=== PATIENT | female | born 1950 | race African-American/Black ===

== ENCOUNTER → 2016-10-11 | Outpatient (CLI) | payer MEDICARE, MEDICAID ==
[~2016-10-11] MED LIST: AML5T OR; ASPI-231 PO; BACL20TA PO; FOLITAB OR; ROSU5TAB5 PO
== END | disposition home or self-care (01) ==
LOC: Rad HDHVI 08:47
PROVIDERS: ATTEND Internal Medicine Cardiovascular Disease
DX: I67.1 Cerebral aneurysm, nonruptured (principal); I10 Essential (primary) hypertension
CPT/HCPCS: 93880

== ENCOUNTER → 2016-10-31 | Outpatient (CLI) | payer MEDICARE, MEDICAID | END | disposition home or self-care (01) | LOC: LAB 08:44 | DX: I74.9 Embolism and thrombosis of unspecified artery (principal) | CPT/HCPCS: 36415; 82565; 84520 ==

== ENCOUNTER → 2017-02-02 | Outpatient (CLI) | payer MEDICARE, MEDICAID ==
[~2017-02-02] MED LIST changes: +ASPI325T4 PO; +ATOR40TA52 PO; -FOLITAB OR; +PANT40TA2 PO; -ROSU5TAB5 PO
[2017-02-02 09:55] LABS: Basophils # (auto) 0 uL; Basophils % (auto) 0.5 % (0.0-2.0); Eosinophils # (auto) 0.1 uL; Eosinophils % (auto) 2.2 % (0.0-7.0); Hemoglobin 14.3 g/dL (12.2-16.2); Lymphocytes # (auto) 2.1 uL; Lymphocytes % (auto) 43.9 % (10.0-50.0); Mean Corpuscular Hemoglobin 33.5 pg (28.0-32.0); Mean Corpuscular Hgb Conc. 33.9 g/dL (32.0-36.0); Mean Corpuscular Volume 98.7 fL (80.0-100.0); Mean Platelet Volume 10.2 fL (7.4-10.4); Monocytes # (auto) 0.8 uL; Monocytes % (auto) 17.7 % (0.0-12.0); Neutrophils # (auto) 1.7 uL; Neutrophils % (auto) 35.7 % (37.0-80.0); Platelet Count (auto) 152 10^3/uL (140-450); Red Cell Distribution Width 13.8 % (11.6-16.0); SUSPECT VIEW TRANSMISSION; White Blood Cell 4.7 10^3/uL (4.4-10.8)
[2017-02-02 10:15] LABS: INR 1.01 (0.9-1.15); Partial Thromboplastin Time 29.6 sec (22.64-33.71)
[2017-02-02 10:27] LABS: Large Platelets FEW; Platelet Estimate Adequate
== END | disposition home or self-care (01) ==
LOC: LAB 09:47
PROVIDERS: ATTEND Internal Medicine Gastroenterology
DX: Z01.812 Encounter for preprocedural laboratory examination (principal); I74.9 Embolism and thrombosis of unspecified artery
CPT/HCPCS: 36415; 85025; 85610; 85730

== ENCOUNTER → 2017-02-05 | Day surgery (SDC) | payer MEDICARE, MEDICAID ==
[~2017-02-05] VITALS: Ht 162.6 cm; Wt 66.7 kg
[~2017-02-05] MED LIST changes: -ASPI-231 PO; -BACL20TA PO; +LIDOCAINE VISCOUS 2% 15ML UD ONE; +MIDAZOLAM HCL 5 MG/ML-1ML VIAL ONE; +SODIUM CHLORIDE LOCK 10 ML ONE; +diphenhdrAMINE HCL 50 MG/1 ML VL ONE; +fentaNYL CITRATE 100 MCG/2 ML VL ONE
[2017-02-05 10:38] VITALS: BP 134/84
== END | disposition home or self-care (01) ==
LOC: GI 08:58
PROVIDERS: ATTEND Internal Medicine Gastroenterology
DX: R13.10 Dysphagia, unspecified (principal); Z95.0 Presence of cardiac pacemaker; M46.96 Unspecified inflammatory spondylopathy, lumbar region; Z87.891 Personal history of nicotine dependence
CPT/HCPCS: 43239; J2250

== ENCOUNTER → 2017-05-25 | Outpatient (CLI) | payer MEDICARE, MEDICAID ==
[~2017-05-25] MED LIST changes: -LIDOCAINE VISCOUS 2% 15ML UD ONE; -MIDAZOLAM HCL 5 MG/ML-1ML VIAL ONE; -SODIUM CHLORIDE LOCK 10 ML ONE; -diphenhdrAMINE HCL 50 MG/1 ML VL ONE; -fentaNYL CITRATE 100 MCG/2 ML VL ONE
[2017-05-25 09:32] LABS: Hemoglobin 13.9 g/dL (12.2-16.2); Mean Corpuscular Hemoglobin 33.4 pg (28.0-32.0); Mean Corpuscular Hgb Conc. 33.8 g/dL (32.0-36.0); Mean Platelet Volume 9.9 fL (6.9-10.8); Platelet Count (auto) 141 10^3/uL (140-450); Red Cell Distribution Width 13.3 % (11.8-14.3); White Blood Cell 5.3 10^3/uL (4.4-10.8)
[2017-05-25 09:35] LABS: Metamyelocytes % 0; Myelocytes % 0; Promyelocytes % 0; Reactive Lymphocytes 0
[2017-05-25 10:04] LABS: Albumin 3.9 g/dL (3.4-5.0); BUN/Creatinine Ratio 21.1; Bilirubin, Direct 0.2 mg/dL (0-0.2); Bilirubin, Total 0.8 mg/dL (0.2-1.0); Potassium 3.8 mmol/L (3.5-5.1); Total Protein 8.2 g/dL (6.4-8.2)
[2017-05-25 15:53] LABS: Platelet Estimate Adequate
[2017-05-25 15:54] LABS: Large Platelets FEW; Ovalocytes FEW
[2017-05-25 15:55] LABS: Burr Cells FEW
== END | disposition home or self-care (01) ==
LOC: LAB 09:04
PROVIDERS: ATTEND Family Medicine
DX: I10 Essential (primary) hypertension (principal); E78.5 Hyperlipidemia, unspecified
CPT/HCPCS: 36415; 80053; 80061; 80076; 85007; 85027

== ENCOUNTER 2017-07-03 09:48 | Inpatient (IN) | payer MEDICARE, MEDICAID ==
[~2017-07-03] VITALS: Ht 162.6 cm; Wt 66.0 kg
[2017-07-03 10:58] LABS: Basophils # (auto) 0 uL; Basophils % (auto) 1.1 % (0.0-2.0); Eosinophils # (auto) 0.1 uL; Eosinophils % (auto) 1.7 % (0.0-7.0); Hematocrit 43.1 % (36.0-46.0); Hemoglobin 14.4 g/dL (12.2-16.2); Lymphocytes # (auto) 2.3 uL; Lymphocytes % (auto) 51.4 % (10.0-50.0); Mean Corpuscular Hemoglobin 33.4 pg (28.0-32.0); Mean Corpuscular Hgb Conc. 33.4 g/dL (32.0-36.0); Mean Corpuscular Volume 100.2 fL (80.0-100.0); Monocytes # (auto) 0.8 uL; Monocytes % (auto) 17.9 % (0.0-12.0); Neutrophils # (auto) 1.3 uL; Neutrophils % (auto) 27.9 % (37.0-80.0); Nucleated Red Blood Cells % 0.3 %; Platelet Count (auto) 148 10^3/uL (140-450); Red Cell Distribution Width 13.4 % (11.8-14.3); White Blood Cell 4.5 10^3/uL (4.4-10.8)
[2017-07-03 11:32] LABS: Alkaline Phosphatase 125 U/L (45-117); Anion Gap 8 (5-15); Aspartate Aminotransferase 27 U/L (15-37); BUN/Creatinine Ratio 16.4; Blood Urea Nitrogen 10 mg/dL (7-18); Carbon Dioxide 22 mmol/L (21-32); Chloride 112 mmol/L (98-107); GFR African American 127 mL/min; GFR Non-African American 105 mL/min; Glucose 86 mg/dL (74-106); Magnesium 2.3 mg/dL (1.6-2.6); Potassium 3.6 mmol/L (3.5-5.1); Sodium 142 mmol/L (136-145); Total Protein 8.6 g/dL (6.4-8.2)
[2017-07-03] MEDS ORDERED: MORPHINE SULFATE 10 MG/ML INJ 1ML SDV IV PRN ×2 (14:45)
[2017-07-03] MEDS ORDERED: HYDROcodone-ACET 5/325MG TAB PO PRN (14:45)
[2017-07-03] MEDS ORDERED: ONDANSETRON HCL 4 MG/2 ML VIAL IV PRN (14:45)
[2017-07-03] MEDS ORDERED: amLODIPine BESYLATE 5 MG TAB PO ONE (15:00)
[2017-07-03] MEDS ORDERED: PANTOPRAZOLE 40 MG TAB PO ONE (15:00)
[2017-07-03] MEDS ORDERED: ASPirin 81 mg TAB PO SCH (16:27)
[2017-07-03] MEDS: ATORVASTATIN 20 MG TAB PO SCH (22:00)
[2017-07-04 02:30] VITALS: BP 128/63
[2017-07-04 05:00] VITALS: BP 127/63
[2017-07-04 06:03] LABS: INR 1.03 (0.9-1.15); Partial Thromboplastin Time 30.2 sec (22.64-33.71); Prothrombin Time 11.2 sec (9.37-12.3)
[2017-07-04 06:06] LABS: BUN/Creatinine Ratio 16.9; Calcium 9.1 mg/dL (8.5-10.1); Potassium 3.6 mmol/L (3.5-5.1)
[2017-07-04 09:00] VITALS: BP 110/63
[2017-07-04] MEDS: ASPirin 325 MG TAB PO SCH (09:52)
[2017-07-04] MEDS: PANTOPRAZOLE 40 MG TAB PO SCH (09:53)
[2017-07-04] MEDS: amLODIPine BESYLATE 5 MG TAB PO SCH (09:53)
[2017-07-04 12:59] VITALS: BP 118/63
[2017-07-04 16:58] VITALS: BP 149/79
[2017-07-04] MEDS: NITROGLYCERIN 0.4 MG SL TAB SL PRN ×3 (19:44→19:54)
[2017-07-04 21:47] VITALS: BP 119/57
[2017-07-04] MEDS: ATORVASTATIN 20 MG TAB PO SCH (22:20)
[2017-07-05 04:39] VITALS: BP 117/73
[2017-07-05 09:00] VITALS: BP 107/77
[2017-07-05] MEDS: ASPirin 325 MG TAB PO SCH (09:54)
[2017-07-05] MEDS: amLODIPine BESYLATE 5 MG TAB PO SCH (09:55)
[2017-07-05] MEDS: PANTOPRAZOLE 40 MG TAB PO SCH (09:55)
[2017-07-05 12:26] VITALS: BP 107/77
[2017-07-05 13:00] VITALS: BP 112/71
== END 2017-07-05 14:30 | disposition home or self-care (01) | DRG 66 ==
LOC: ER 09:48 → TELE 09:49 → TELE-WESTW 07-04 01:57
PROVIDERS: ADMIT Internal Medicine; ATTEND Internal Medicine
DX: I63.9 Cerebral infarction, unspecified (principal); E87.8 Other disorders of electrolyte and fluid balance, not elsewhere classified; J44.9 Chronic obstructive pulmonary disease, unspecified; M48.02 Spinal stenosis, cervical region; E03.9 Hypothyroidism, unspecified; J32.3 Chronic sphenoidal sinusitis; E78.00 Pure hypercholesterolemia, unspecified; I10 Essential (primary) hypertension; I70.0 Atherosclerosis of aorta; K21.9 Gastro-esophageal reflux disease without esophagitis; M10.9 Gout, unspecified; M47.812 Spondylosis without myelopathy or radiculopathy, cervical region; Z79.82 Long term (current) use of aspirin; Z95.0 Presence of cardiac pacemaker; Z86.79 Personal history of other diseases of the circulatory system; Z82.3 Family history of stroke; Z82.49 Family history of ischemic heart disease and other diseases of the circulatory system; Z83.3 Family history of diabetes mellitus
CPT/HCPCS: 36415; 70450; 71020; 72125; 80048; 80053; 83735; 84443; 84484; 85025; 85610; 85730; 93005; 93306; 93886

== ENCOUNTER → 2017-09-11 | Outpatient (CLI) | payer MEDICARE, MEDICAID ==
[~2017-09-11] MED LIST changes: +IOHEXOL 350 MG/ML 100ML IJ ONE; +LACTCAP35 OR
[2017-09-11 10:55] VITALS: BP 141/72
[2017-09-11 11:26] VITALS: BP 161/62
== END | disposition home or self-care (01) ==
LOC: Rad HDHVI 10:43
PROVIDERS: ATTEND Internal Medicine Cardiovascular Disease
DX: R29.818 Other symptoms and signs involving the nervous system (principal); Z82.49 Family history of ischemic heart disease and other diseases of the circulatory system; Z82.3 Family history of stroke; Z83.3 Family history of diabetes mellitus; Z80.41 Family history of malignant neoplasm of ovary
CPT/HCPCS: 70496; 82565; 96374; G0463; Q9967

== ENCOUNTER → 2017-09-17 | Outpatient (CLI) | payer MEDICARE, MEDICAID ==
[~2017-09-17] MED LIST changes: -IOHEXOL 350 MG/ML 100ML IJ ONE
[2017-09-17 09:45] VITALS: BP 120/54
[2017-09-17 12:26] LABS: Hematocrit 39.9 % (36.0-46.0); Hemoglobin 13.6 g/dL (12.2-16.2); Platelet Count (auto) 158 10^3/uL (140-450); Red Blood Cells 3.99 10^6/uL (4.0-5.20); Red Cell Distribution Width 13.1 % (11.8-14.3); White Blood Cell 3.5 10^3/uL (4.4-10.8)
[2017-09-17 12:35] LABS: Band Neutrophils % (manual) 0; Basophils % (manual) 0 (0.0-2.0)
[2017-09-17 12:36] LABS: Blast Cells 0; Metamyelocytes % 0; Myelocytes % 0; Promyelocytes % 0; Reactive Lymphocytes 0
[2017-09-17 12:40] LABS: BUN/Creatinine Ratio 18.1; Calcium 8.6 mg/dL (8.5-10.1); INR 1.01 (0.9-1.15); Partial Thromboplastin Time 28.9 sec (22.64-33.71); Potassium 3.4 mmol/L (3.5-5.1)
[2017-09-17 12:44] VITALS: BP 126/62
[2017-09-17 13:17] LABS: Eosinophils % (manual) 2 (0-7); Lymphocytes % (manual) 49 (10.0-50.0); Monocytes % (manual) 11 (0-12)
== END | disposition home or self-care (01) ==
LOC: Rad HDHVI 08:04
PROVIDERS: ATTEND Internal Medicine Cardiovascular Disease
DX: Z01.818 Encounter for other preprocedural examination (principal); I70.0 Atherosclerosis of aorta; I11.0 Hypertensive heart disease with heart failure; I50.9 Heart failure, unspecified; D64.9 Anemia, unspecified; R79.1 Abnormal coagulation profile; E78.00 Pure hypercholesterolemia, unspecified; I42.9 Cardiomyopathy, unspecified; Z95.0 Presence of cardiac pacemaker
CPT/HCPCS: 36415; 71046; 80048; 85007; 85027; 85610; 85730; 93005; G0463

== ENCOUNTER 2017-09-18 13:13 | Day surgery (SDC) | payer MEDICARE, MEDICAID ==
[~2017-09-18] VITALS: Ht 162.6 cm; Wt 69.0 kg
[~2017-09-18 13:13] MED LIST changes: -ATOR40TA52 PO; -LACTCAP35 OR
[2017-09-18] MEDS ORDERED: MIDAZOLAM HCL 1MG/1ML-2 ML VIAL IV ONE (13:30)
[2017-09-18] MEDS ORDERED: FLUMAZENIL 0.1 MG/ML INJ 10ML MDV IV ONE (13:30)
[2017-09-18] MEDS ORDERED: fentaNYL CITRATE 100 MCG/2 ML VL IV ONE (13:30)
[2017-09-18] MEDS ORDERED: NALOXONE HCL 0.4 MG/ML VIAL IV ONE (13:30)
[2017-09-18] MEDS ORDERED: METOCLOPRAMIDE HCL 5MG/ml INJ 2ml VIAL IV ONE (13:30)
[2017-09-18] MEDS ORDERED: METOCLOPRAMIDE HCL 5MG/ml INJ 2ml VIAL ONE (13:46)
[2017-11-16] MEDS ORDERED: LACTCAP35 OR (10:57)
== END 2017-09-18 15:40 | disposition home or self-care (01) ==
LOC: CATH 13:13
PROVIDERS: ATTEND Internal Medicine Cardiovascular Disease
DX: I42.9 Cardiomyopathy, unspecified (principal); I50.20 Unspecified systolic (congestive) heart failure; F17.210 Nicotine dependence, cigarettes, uncomplicated; I10 Essential (primary) hypertension; E78.5 Hyperlipidemia, unspecified; J44.9 Chronic obstructive pulmonary disease, unspecified; G45.9 Transient cerebral ischemic attack, unspecified
CPT/HCPCS: 93312; J2250; J3010; J7040; 99152

== ENCOUNTER → 2017-11-16 | Outpatient (CLI) | payer MEDICARE, MEDICAID ==
[~2017-11-16] MED LIST changes: +LACTCAP35 OR
[2017-11-16 09:30] VITALS: BP 117/61
[2017-11-16 09:50] VITALS: BP 122/59
[2017-11-16 12:44] LABS: Hematocrit 41.3 % (36.0-46.0); Hemoglobin 13.9 g/dL (12.2-16.2); Mean Corpuscular Hemoglobin 33.5 pg (28.0-32.0); Mean Corpuscular Hgb Conc. 33.6 g/dL (32.0-36.0); Mean Corpuscular Volume 99.8 fL (80.0-100.0); Platelet Count (auto) 184 10^3/uL (140-450); Red Blood Cells 4.13 10^6/uL (4.0-5.20); Red Cell Distribution Width 13.3 % (11.8-14.3); White Blood Cell 5.3 10^3/uL (4.4-10.8)
[2017-11-16 12:55] LABS: Band Neutrophils % (manual) 0; Basophils % (manual) 0 (0.0-2.0); Metamyelocytes % 0; Partial Thromboplastin Time 30.1 sec (22.64-33.71); Prothrombin Time 10.9 sec (9.37-12.3)
[2017-11-16 12:56] LABS: Blast Cells 0; Myelocytes % 0; Promyelocytes % 0
[2017-11-16 12:58] LABS: BUN/Creatinine Ratio 22.7; Calcium 8.5 mg/dL (8.5-10.1); Potassium 3.9 mmol/L (3.5-5.1)
[2017-11-16 13:17] LABS: Eosinophils % (manual) 1 (0-7); Lymphocytes % (manual) 34 (10.0-50.0); Monocytes % (manual) 13 (0-12); Reactive Lymphocytes 3
== END | disposition home or self-care (01) ==
LOC: Rad HDHVI 09:16
PROVIDERS: ATTEND Internal Medicine Cardiovascular Disease
DX: Z01.818 Encounter for other preprocedural examination (principal); I10 Essential (primary) hypertension; Z79.899 Other long term (current) drug therapy
CPT/HCPCS: 36415; 71046; 80048; 85007; 85027; 85610; 85730; 93005; G0463

== ENCOUNTER 2017-11-22 08:13 | Day surgery (SDC) | payer MEDICARE, MEDICAID ==
[~2017-11-22] VITALS: Ht 162.6 cm; Wt 62.6 kg
[2017-11-22] MEDS ORDERED: ANGIOMAX 250 MG VIAL IV ONE (09:21)
[2017-11-22] MEDS ORDERED: IODIXANOL 320MG/ML 100ML BTL IV ONE (09:21)
[2017-11-22] MEDS ORDERED: SODIUM CHL 0.9% 0 ML ONE (09:21)
[2017-11-22] MEDS ORDERED: MIDAZOLAM HCL 1MG/1ML-2 ML VIAL ONE (09:21)
[2017-11-22] MEDS ORDERED: fentaNYL CITRATE 100 MCG/2 ML VL ONE (09:21)
[2017-11-22] MEDS ORDERED: LIDOCAINE HCL 2 %PF INJ 10ML AMP IJ ONE (09:22)
[2017-11-22] MEDS ORDERED: SODIUM CHLORIDE 0.9% 1,000 ML IV SCH (10:02)
== END 2017-11-22 12:35 | disposition home or self-care (01) ==
LOC: CATH 08:13
PROVIDERS: ATTEND Internal Medicine Cardiovascular Disease
DX: I42.9 Cardiomyopathy, unspecified (principal); I10 Essential (primary) hypertension; E78.5 Hyperlipidemia, unspecified; I49.5 Sick sinus syndrome; Z95.0 Presence of cardiac pacemaker; Z87.891 Personal history of nicotine dependence; I63.9 Cerebral infarction, unspecified; J44.9 Chronic obstructive pulmonary disease, unspecified; E66.9 Obesity, unspecified
CPT/HCPCS: 93460; C1751; C1760; C1894; J1644; J2250; J3010; J7030; Q9967; 99152

== ENCOUNTER 2017-12-31 17:18 | Emergency (ER) | payer MEDICARE, MEDICAID ==
[~2017-12-31] VITALS: Ht 162.6 cm; Wt 64.4 kg
[2017-12-31 18:36] VITALS: BP 145/68
== END 2017-12-31 19:28 | disposition home or self-care (01) ==
LOC: ER 17:19
DX: H61.23 Impacted cerumen, bilateral (principal); M10.9 Gout, unspecified; I10 Essential (primary) hypertension; Z79.82 Long term (current) use of aspirin; Z95.0 Presence of cardiac pacemaker
CPT/HCPCS: 69209

== ENCOUNTER → 2018-02-15 | Outpatient (CLI) | payer MEDICARE, MEDICAID ==
[2018-02-15 09:36] LABS: Basophils # (auto) 0.1 uL; Basophils % (auto) 2.7 % (0.0-2.0); Eosinophils # (auto) 0.1 uL; Eosinophils % (auto) 2.1 % (0.0-7.0); Hematocrit 43.1 % (36.0-46.0); Hemoglobin 14.8 g/dL (12.2-16.2); Lymphocytes # (auto) 1.6 uL; Lymphocytes % (auto) 34.9 % (10.0-50.0); Mean Corpuscular Hemoglobin 33.8 pg (28.0-32.0); Mean Corpuscular Hgb Conc. 34.2 g/dL (32.0-36.0); Mean Corpuscular Volume 98.7 fL (80.0-100.0); Monocytes # (auto) 0.8 uL; Monocytes % (auto) 17.7 % (0.0-12.0); Neutrophils % (auto) 42.6 % (37.0-80.0); Nucleated Red Blood Cells % 0.1 %; Platelet Count (auto) 146 10^3/uL (140-450); Red Blood Cells 4.37 10^6/uL (4.0-5.20); Red Cell Distribution Width 13.7 % (11.8-14.3); Urine Bacteria NONE SEEN /hpf (None Seen); Urine Blood Negative /uL (Negative); Urine Mucus FEW (None Seen); Urine WBC 4 /hpf (0 - 5); White Blood Cell 4.7 10^3/uL (4.4-10.8)
[2018-02-15 10:08] LABS: Albumin 3.8 g/dL (3.4-5.0); Bilirubin, Total 0.6 mg/dL (0.2-1.0); Calcium 8.9 mg/dL (8.5-10.1); Potassium 3.9 mmol/L (3.5-5.1); Total Protein 8.3 g/dL (6.4-8.2)
== END | disposition home or self-care (01) ==
LOC: LAB 08:46
PROVIDERS: ATTEND Nurse Practitioner
DX: I10 Essential (primary) hypertension (principal); E78.5 Hyperlipidemia, unspecified; J44.9 Chronic obstructive pulmonary disease, unspecified; Z79.899 Other long term (current) drug therapy; Z87.891 Personal history of nicotine dependence
CPT/HCPCS: 36415; 80053; 80061; 81001; 82306; 83036; 84443; 85025

== ENCOUNTER → 2018-05-07 | Outpatient (CLI) | payer MEDICARE, MEDICAID ==
[2018-05-07 14:41] LABS: Urine Blood Negative /uL (Negative); Urine Specific Gravity 1.026 (1.001-1.035)
== END | disposition home or self-care (01) ==
LOC: LAB 14:17
PROVIDERS: ATTEND Nurse Practitioner
DX: R35.0 Frequency of micturition (principal); I10 Essential (primary) hypertension; M10.9 Gout, unspecified
CPT/HCPCS: 81003

== ENCOUNTER 2018-07-07 22:11 | Emergency (ER) | payer MEDICARE, MEDICAID ==
[~2018-07-07] VITALS: Ht 162.6 cm; Wt 64.0 kg
[2018-07-07] MEDS ORDERED: cloNIDine HCL 0.1 MG TAB PO ONE (22:30)
[2018-07-08] MEDS ORDERED: SUMAtriptan SUCCINATE 6 MG/0.5 ML VL SC ONE (00:30)
[2018-07-08 00:36] VITALS: BP 109/68
== END 2018-07-08 01:05 | disposition home or self-care (01) ==
LOC: ER 22:13
DX: G43.909 Migraine, unspecified, not intractable, without status migrainosus (principal); I10 Essential (primary) hypertension; Z95.0 Presence of cardiac pacemaker
CPT/HCPCS: 70450; 99284; J3030

== ENCOUNTER → 2018-10-02 | Outpatient (CLI) | payer OTHER, MEDICAID, MEDICARE ==
[2018-10-02 09:20] LABS: Basophils # (auto) 0.1 uL; Basophils % (auto) 1.7 % (0.0-2.0); Eosinophils # (auto) 0.3 uL; Eosinophils % (auto) 7.5 % (0.0-7.0); Hematocrit 41.5 % (36.0-46.0); Hemoglobin 14.3 g/dL (12.2-16.2); Lymphocytes # (auto) 1.6 uL; Mean Corpuscular Hgb Conc. 34.6 g/dL (32.0-36.0); Mean Corpuscular Volume 98.3 fL (80.0-100.0); Monocytes # (auto) 0.5 uL; Monocytes % (auto) 14.2 % (0.0-12.0); Neutrophils # (auto) 1.4 uL; Neutrophils % (auto) 35.6 % (37.0-80.0); Nucleated Red Blood Cells % 0.2 %; Platelet Count (auto) 138 10^3/uL (140-450); Red Blood Cells 4.22 10^6/uL (4.0-5.20); Red Cell Distribution Width 12.9 % (11.8-14.3); White Blood Cell 3.8 10^3/uL (4.4-10.8)
[2018-10-02 09:41] LABS: Albumin 3.6 g/dL (3.4-5.0); Calcium 8.6 mg/dL (8.5-10.1); Potassium 3.8 mmol/L (3.5-5.1)
[2018-10-02 09:47] LABS: Bilirubin, Total 0.5 mg/dL (0.2-1.0); Total Protein 7.7 g/dL (6.4-8.2)
[2018-10-02 10:13] LABS: Urine Bacteria FEW /hpf (None Seen); Urine Blood Negative /uL (Negative); Urine Budding Yeast FEW /hpf (None Seen); Urine Specific Gravity 1.016 (1.001-1.035); Urine WBC 2 /hpf (0 - 5)
== END | disposition home or self-care (01) ==
LOC: LAB 08:22
PROVIDERS: ATTEND Nurse Practitioner
DX: E78.5 Hyperlipidemia, unspecified (principal)
CPT/HCPCS: 36415; 80053; 80061; 81001; 84443; 85025

== ENCOUNTER → 2019-02-04 | Outpatient (CLI) | payer MEDICARE, MEDICAID ==
[2019-02-04 09:21] LABS: Urine WBC None Seen /hpf (0 - 5)
[2019-02-04 09:38] LABS: Hemoglobin 13.8 g/dL (12.2-16.2); Mean Corpuscular Volume 101.3 fL (80.0-100.0); Platelet Count (auto) 151 10^3/uL (140-450); Red Cell Distribution Width 13.7 % (11.8-14.3)
[2019-02-04 09:40] LABS: Hematocrit 40.2 % (36.0-46.0); Mean Corpuscular Hemoglobin 34.7 pg (28.0-32.0); Mean Corpuscular Hgb Conc. 34.3 g/dL (32.0-36.0); Red Blood Cells 3.97 10^6/uL (4.0-5.20); White Blood Cell 4.3 10^3/uL (4.4-10.8)
[2019-02-04 09:46] LABS: Potassium 4.1 mmol/L (3.5-5.1)
[2019-02-04 09:55] LABS: Band Neutrophils % (manual) 0; Basophils % (manual) 0 (0.0-2.0); Blast Cells 0; Metamyelocytes % 0; Myelocytes % 0; Promyelocytes % 0; Reactive Lymphocytes 0
[2019-02-04 09:59] LABS: Albumin 3.7 g/dL (3.4-5.0); Bilirubin, Total 0.5 mg/dL (0.2-1.0); Calcium 8.8 mg/dL (8.5-10.1); Total Protein 8.3 g/dL (6.4-8.2)
[2019-02-04 10:00] LABS: Urine Bacteria NONE SEEN /hpf (None Seen); Urine Blood Negative /uL (Negative); Urine Budding Yeast MODERATE /hpf (None Seen); Urine Specific Gravity 1.013 (1.001-1.035)
[2019-02-04 11:54] LABS: Eosinophils % (manual) 4 (0-7); Lymphocytes % (manual) 39 (10.0-50.0); Monocytes % (manual) 23 (0-12)
== END | disposition home or self-care (01) ==
LOC: LAB 08:01
PROVIDERS: ATTEND Nurse Practitioner
DX: E78.5 Hyperlipidemia, unspecified (principal)
CPT/HCPCS: 36415; 80053; 80061; 81001; 84443; 85007; 85027

== ENCOUNTER → 2019-02-11 | Outpatient (CLI) | payer MEDICARE, OTHER | END | disposition home or self-care (01) | LOC: Rad HDHVI 09:51 | PROVIDERS: ATTEND Internal Medicine Cardiovascular Disease | DX: I34.0 Nonrheumatic mitral (valve) insufficiency (principal); J44.9 Chronic obstructive pulmonary disease, unspecified; I10 Essential (primary) hypertension; E78.5 Hyperlipidemia, unspecified | CPT/HCPCS: 93306 ==

== ENCOUNTER → 2019-03-21 | Outpatient (CLI) | payer MEDICARE, OTHER ==
[2019-03-21 16:17] LABS: Eosinophils # (auto) 0.1 uL; Hemoglobin 14.2 g/dL (12.2-16.2); Monocytes # (auto) 0.8 uL; Neutrophils # (auto) 1.6 uL; Platelet Count (auto) 161 10^3/uL (140-450); Red Blood Cells 4.11 10^6/uL (4.0-5.20); White Blood Cell 4.4 10^3/uL (4.4-10.8)
[2019-03-21 16:18] LABS: Calcium 8.8 mg/dL (8.5-10.1); Potassium 3.6 mmol/L (3.5-5.1)
[2019-03-21 16:20] LABS: BUN/Creatinine Ratio 11.1; Basophils # (auto) 0.1 uL; Basophils % (auto) 1.2 % (0.0-2.0); Eosinophils % (auto) 2.1 % (0.0-7.0); Hematocrit 42.6 % (36.0-46.0); Lymphocytes # (auto) 1.9 uL; Lymphocytes % (auto) 42.9 % (10.0-50.0); Mean Corpuscular Hemoglobin 34.6 pg (28.0-32.0); Mean Corpuscular Hgb Conc. 33.3 g/dL (32.0-36.0); Mean Corpuscular Volume 103.7 fL (80.0-100.0); Monocytes % (auto) 17.7 % (0.0-12.0); Neutrophils % (auto) 36.1 % (37.0-80.0); Nucleated Red Blood Cells % 0.1 %
== END | disposition home or self-care (01) ==
LOC: Rad HDHVI 12:54
PROVIDERS: ATTEND Internal Medicine Cardiovascular Disease
DX: D64.9 Anemia, unspecified (principal); D75.89 Other specified diseases of blood and blood-forming organs; I11.0 Hypertensive heart disease with heart failure; I50.9 Heart failure, unspecified
CPT/HCPCS: 36415; 80048; 85025; 85045

== ENCOUNTER → 2019-04-01 | Outpatient (CLI) | payer MEDICARE, OTHER ==
[2019-04-01 10:10] LABS: Urine Bacteria NONE SEEN /hpf (None Seen); Urine Blood Negative /uL (Negative); Urine Specific Gravity 1.019 (1.001-1.035); Urine WBC <1 /hpf (0 - 5)
[2019-04-01 10:20] LABS: Hemoglobin 14.1 g/dL (12.2-16.2); White Blood Cell 4.1 10^3/uL (4.4-10.8)
[2019-04-01 10:25] LABS: Hematocrit 41.6 % (36.0-46.0); Mean Corpuscular Hemoglobin 34.3 pg (28.0-32.0); Mean Corpuscular Volume 100.9 fL (80.0-100.0); Platelet Count (auto) 147 10^3/uL (140-450); Red Blood Cells 4.12 10^6/uL (4.0-5.20); Red Cell Distribution Width 12.6 % (11.8-14.3)
[2019-04-01 10:58] LABS: Basophils % (manual) 0 (0.0-2.0); Blast Cells 0; Metamyelocytes % 0; Myelocytes % 0; Promyelocytes % 0; Reactive Lymphocytes 0
[2019-04-01 10:59] LABS: Albumin 3.7 g/dL (3.4-5.0); Calcium 8.7 mg/dL (8.5-10.1); Potassium 3.9 mmol/L (3.5-5.1)
[2019-04-01 11:02] LABS: BUN/Creatinine Ratio 19.1; Bilirubin, Total 0.6 mg/dL (0.2-1.0); Total Protein 8.1 g/dL (6.4-8.2)
[2019-04-01 14:58] LABS: Band Neutrophils % (manual) 1; Eosinophils % (manual) 4 (0-7); Lymphocytes % (manual) 50 (10.0-50.0); Monocytes % (manual) 12 (0-12)
== END | disposition home or self-care (01) ==
LOC: LAB 09:38
PROVIDERS: ATTEND Nurse Practitioner
DX: E03.9 Hypothyroidism, unspecified (principal)
CPT/HCPCS: 36415; 80053; 81001; 84443; 85007; 85027

== ENCOUNTER → 2019-04-02 | Outpatient (CLI) | payer MEDICARE, OTHER ==
[~2019-04-02] VITALS: Ht 162.6 cm; Wt 68.0 kg
== END | disposition home or self-care (01) ==
LOC: Rad HDHVI 13:41
PROVIDERS: ATTEND Internal Medicine Cardiovascular Disease
DX: R07.9 Chest pain, unspecified (principal); I10 Essential (primary) hypertension; E03.9 Hypothyroidism, unspecified
CPT/HCPCS: 78452; 93017; 96374; A9500

== ENCOUNTER → 2019-09-02 | Outpatient (CLI) | payer MEDICARE, OTHER ==
[2019-09-02 10:35] LABS: Hematocrit 41.8 % (36.0-46.0); Hemoglobin 14.5 g/dL (12.2-16.2); Mean Corpuscular Hemoglobin 34.2 pg (28.0-32.0); Mean Corpuscular Hgb Conc. 34.8 g/dL (32.0-36.0); Mean Corpuscular Volume 98.5 fL (80.0-100.0); Platelet Count (auto) 135 10^3/uL (140-450); Red Blood Cells 4.24 10^6/uL (4.0-5.20); Red Cell Distribution Width 13.3 % (11.8-14.3); White Blood Cell 4.6 10^3/uL (4.4-10.8)
[2019-09-02 10:37] LABS: Band Neutrophils % (manual) 0; Basophils % (manual) 0 (0.0-2.0); Blast Cells 0; Metamyelocytes % 0; Myelocytes % 0; Promyelocytes % 0; Reactive Lymphocytes 0
[2019-09-02 10:49] LABS: Urine Bacteria FEW /hpf (None Seen); Urine Blood Negative /uL (Negative); Urine Mucus FEW (None Seen); Urine Specific Gravity 1.016 (1.001-1.035); Urine WBC 1 /hpf (0 - 5)
[2019-09-02 10:53] LABS: Potassium 3.7 mmol/L (3.5-5.1)
[2019-09-02 11:05] LABS: Albumin 3.6 g/dL (3.4-5.0); BUN/Creatinine Ratio 12.1; Bilirubin, Total 1.1 mg/dL (0.2-1.0); Calcium 8.9 mg/dL (8.5-10.1)
[2019-09-02 11:54] LABS: Eosinophils % (manual) 2 (0-7); Lymphocytes % (manual) 39 (10.0-50.0); Monocytes % (manual) 21 (0-12)
== END | disposition home or self-care (01) ==
LOC: LAB 09:58
PROVIDERS: ATTEND Nurse Practitioner
DX: E78.5 Hyperlipidemia, unspecified (principal)
CPT/HCPCS: 36415; 80053; 80061; 81001; 84443; 85007; 85027

== ENCOUNTER → 2019-12-08 | Outpatient (CLI) | payer MEDICARE, OTHER, MEDICAID | END | disposition home or self-care (01) | LOC: Rad HDHVI 08:12 | PROVIDERS: ATTEND Internal Medicine Cardiovascular Disease | DX: I34.0 Nonrheumatic mitral (valve) insufficiency (principal); J44.9 Chronic obstructive pulmonary disease, unspecified; I49.5 Sick sinus syndrome; Z95.0 Presence of cardiac pacemaker | CPT/HCPCS: 93306 ==

== ENCOUNTER → 2019-12-09 | Outpatient (CLI) | payer MEDICARE, MEDICAID ==
[~2019-12-09] VITALS: Ht 162.6 cm; Wt 70.3 kg
== END | disposition home or self-care (01) ==
LOC: Rad HDHVI 09:48
PROVIDERS: ATTEND Internal Medicine Cardiovascular Disease
DX: I10 Essential (primary) hypertension (principal); R07.89 Other chest pain; E78.00 Pure hypercholesterolemia, unspecified; Z95.0 Presence of cardiac pacemaker
CPT/HCPCS: 78452; 93017; 96374; A9500

== ENCOUNTER → 2019-12-09 | Outpatient (CLI) | payer MEDICARE, MEDICAID ==
[2019-12-09 13:05] LABS: Basophils # (auto) 0 10 ^3/uL (0-0.2); Basophils % (auto) 0.5 % (0.0-2.0); Eosinophils # (auto) 0.1 10 ^3/uL (0-0.8); Eosinophils % (auto) 2.3 % (0.0-7.0); Hematocrit 43.6 % (36.0-46.0); Hemoglobin 14.8 g/dL (12.2-16.2); Lymphocytes # (auto) 2.2 10 ^3/uL (0.4-5.4); Lymphocytes % (auto) 38.5 % (10.0-50.0); Mean Corpuscular Hemoglobin 33.6 pg (28.0-32.0); Mean Corpuscular Volume 98.9 fL (80.0-100.0); Monocytes # (auto) 0.8 10 ^3/uL (0-1.3); Monocytes % (auto) 14.7 % (0.0-12.0); Neutrophils # (auto) 2.5 10 ^3/uL (1.6-8.6); Nucleated Red Blood Cells % 0.2 %; Platelet Count (auto) 139 10^3/uL (140-450); Red Blood Cells 4.41 10^6/uL (4.0-5.20); Red Cell Distribution Width 13.2 % (11.8-14.3); White Blood Cell 5.7 10^3/uL (4.4-10.8)
[2019-12-09 13:17] LABS: Albumin 3.7 g/dL (3.4-5.0); Calcium 8.7 mg/dL (8.5-10.1); Potassium 3.8 mmol/L (3.5-5.1)
[2019-12-09 13:21] LABS: BUN/Creatinine Ratio 14.1; Bilirubin, Total 0.6 mg/dL (0.2-1.0); Total Protein 8.3 g/dL (6.4-8.2)
== END | disposition home or self-care (01) ==
LOC: LAB 12:40
PROVIDERS: ATTEND Nurse Practitioner
DX: E78.5 Hyperlipidemia, unspecified (principal); Z00.00 Encounter for general adult medical examination without abnormal findings
CPT/HCPCS: 36415; 80053; 80061; 85025

== ENCOUNTER → 2020-07-12 | Outpatient (CLI) | payer MEDICARE, MEDICAID | END | disposition home or self-care (01) | LOC: LAB 15:11 | PROVIDERS: ATTEND Internal Medicine Cardiovascular Disease | DX: R94.4 Abnormal results of kidney function studies (principal) | CPT/HCPCS: 36415; 82565 ==

== ENCOUNTER → 2020-07-14 | Outpatient (CLI) | payer MEDICARE, MEDICAID ==
[~2020-07-14] MED LIST changes: +IOHEXOL 350 MG/ML 100ML IJ ONE; +READI-CAT 2 (BARIUM SULF)(VANILLA SMOOTHIE) 450ML ONE
[2020-07-14 09:59] VITALS: BP 100/83
[2020-07-14 10:49] VITALS: BP 126/52
== END | disposition home or self-care (01) ==
LOC: Rad HDHVI 09:49
PROVIDERS: ATTEND Internal Medicine Cardiovascular Disease
DX: K57.30 Diverticulosis of large intestine without perforation or abscess without bleeding (principal); I70.0 Atherosclerosis of aorta; D25.9 Leiomyoma of uterus, unspecified; J43.9 Emphysema, unspecified; R10.2 Pelvic and perineal pain; R10.9 Unspecified abdominal pain
CPT/HCPCS: 74177; G0463; Q9967

== ENCOUNTER → 2020-08-10 | Outpatient (CLI) | payer MEDICARE, MEDICAID ==
[~2020-08-10] MED LIST changes: -IOHEXOL 350 MG/ML 100ML IJ ONE; -READI-CAT 2 (BARIUM SULF)(VANILLA SMOOTHIE) 450ML ONE
== END | disposition home or self-care (01) ==
LOC: LAB 15:50
PROVIDERS: ATTEND Obstetrics & Gynecology
DX: N39.0 Urinary tract infection, site not specified (principal)
CPT/HCPCS: 87086

== ENCOUNTER → 2020-08-31 | Outpatient (CLI) | payer MEDICARE, MEDICAID ==
[2020-08-31 09:52] LABS: Urine WBC None Seen /hpf (0 - 5)
[2020-08-31 10:23] LABS: Urine Bacteria NONE SEEN /hpf (None Seen); Urine Blood 1+ /uL (Negative); Urine Specific Gravity 1.016 (1.001-1.035)
== END | disposition home or self-care (01) ==
LOC: LAB 09:24
PROVIDERS: ATTEND Obstetrics & Gynecology
DX: N39.0 Urinary tract infection, site not specified (principal)
CPT/HCPCS: 81001; 87086

== ENCOUNTER → 2020-12-27 | Outpatient (CLI) | payer MEDICARE, MEDICAID ==
[2020-12-27 12:05] LABS: Basophils # (auto) 0 10 ^3/uL (0-0.2); Basophils % (auto) 0.4 % (0.0-2.0); Eosinophils # (auto) 0.1 10 ^3/uL (0-0.8); Eosinophils % (auto) 2.3 % (0.0-7.0); Hematocrit 41.7 % (36.0-46.0); Hemoglobin 14.2 g/dL (12.2-16.2); Lymphocytes # (auto) 2.7 10 ^3/uL (0.4-5.4); Lymphocytes % (auto) 47.5 % (10.0-50.0); Mean Corpuscular Hgb Conc. 34.1 g/dL (32.0-36.0); Mean Corpuscular Volume 99.8 fL (80.0-100.0); Monocytes # (auto) 0.9 10 ^3/uL (0-1.3); Monocytes % (auto) 16.6 % (0.0-12.0); Neutrophils # (auto) 1.9 10 ^3/uL (1.6-8.6); Neutrophils % (auto) 33.2 % (37.0-80.0); Nucleated Red Blood Cells % 0.1 %; Platelet Count (auto) 139 10^3/uL (140-450); Red Blood Cells 4.18 10^6/uL (4.0-5.20); Red Cell Distribution Width 13.4 % (11.8-14.3); White Blood Cell 5.7 10^3/uL (4.4-10.8)
[2020-12-27 12:07] LABS: Urine Blood Negative /uL (Negative); Urine Specific Gravity 1.017 (1.001-1.035)
[2020-12-27 12:40] LABS: Free T4 (Free Thyroxine) 1.38 ng/dL (0.89-1.76)
[2020-12-27 12:48] LABS: Albumin 3.7 g/dL (3.4-5.0); BUN/Creatinine Ratio 21.4; Bilirubin, Total 0.6 mg/dL (0.2-1.0)
== END | disposition home or self-care (01) ==
LOC: LAB 09:28
PROVIDERS: ATTEND Internal Medicine Cardiovascular Disease
DX: D51.3 Other dietary vitamin B12 deficiency anemia (principal); I10 Essential (primary) hypertension; E11.9 Type 2 diabetes mellitus without complications; E55.9 Vitamin D deficiency, unspecified; D64.9 Anemia, unspecified; R00.2 Palpitations; R53.1 Weakness; R30.0 Dysuria
CPT/HCPCS: 36415; 80053; 80061; 81003; 82306; 82607; 83036; 84439; 84443; 85025; 87086

== ENCOUNTER → 2021-01-26 | Outpatient (CLI) | payer MEDICARE, MEDICAID | END | disposition home or self-care (01) | LOC: Rad HDHVI 10:25 | PROVIDERS: ATTEND Internal Medicine Cardiovascular Disease | DX: I10 Essential (primary) hypertension (principal); R06.02 Shortness of breath | CPT/HCPCS: 93306 ==

== ENCOUNTER → 2021-01-28 | Outpatient (CLI) | payer MEDICARE, MEDICAID | END | disposition home or self-care (01) | LOC: Rad HDHVI 10:16 | PROVIDERS: ATTEND Internal Medicine Cardiovascular Disease | DX: I65.22 Occlusion and stenosis of left carotid artery (principal); I10 Essential (primary) hypertension; R00.2 Palpitations | CPT/HCPCS: 93880 ==

== ENCOUNTER 2021-02-08 18:30 | Emergency (ER) | payer MEDICARE, MEDICAID ==
[~2021-02-08] VITALS: Ht 162.6 cm; Wt 63.5 kg
[2021-02-08 18:35] VITALS: BP 151/70
== END 2021-02-08 21:44 | disposition left against medical advice (07) ==
LOC: ER 18:31
DX: R51.9 Headache, unspecified (principal); Z53.21 Procedure and treatment not carried out due to patient leaving prior to being seen by health care provider
CPT/HCPCS: 70450

== ENCOUNTER → 2021-02-17 | Outpatient (CLI) | payer MEDICARE, MEDICAID ==
[2021-02-17 08:22] LABS: Hematocrit 41.9 % (36.0-46.0); Mean Corpuscular Hemoglobin 34.7 pg (28.0-32.0); Monocytes # (auto) 0.8 10 ^3/uL (0-1.3); Neutrophils # (auto) 2.1 10 ^3/uL (1.6-8.6)
[2021-02-17 08:24] LABS: Basophils # (auto) 0.1 10 ^3/uL (0-0.2); Basophils % (auto) 1.2 % (0.0-2.0); Eosinophils # (auto) 0.1 10 ^3/uL (0-0.8); Eosinophils % (auto) 2.7 % (0.0-7.0); Hemoglobin 14.7 g/dL (12.2-16.2); Lymphocytes # (auto) 1.9 10 ^3/uL (0.4-5.4); Lymphocytes % (auto) 38.9 % (10.0-50.0); Mean Corpuscular Hgb Conc. 35.1 g/dL (32.0-36.0); Mean Corpuscular Volume 98.8 fL (80.0-100.0); Monocytes % (auto) 15.7 % (0.0-12.0); Neutrophils % (auto) 41.5 % (37.0-80.0); Nucleated Red Blood Cells % 0.1 %; Platelet Count (auto) 161 10^3/uL (140-450); Red Blood Cells 4.24 10^6/uL (4.0-5.20)
[2021-02-17 08:30] LABS: Urine Bacteria FEW /hpf (None Seen); Urine Blood Negative /uL (Negative); Urine Mucus FEW (None Seen); Urine Specific Gravity 1.021 (1.001-1.035); Urine WBC 2 /hpf (0 - 5)
[2021-02-17 08:51] LABS: Albumin 3.8 g/dL (3.4-5.0); Calcium 8.7 mg/dL (8.5-10.1); Potassium 4.1 mmol/L (3.5-5.1)
[2021-02-17 08:55] LABS: BUN/Creatinine Ratio 24.3; Bilirubin, Total 0.4 mg/dL (0.2-1.0)
== END | disposition home or self-care (01) ==
LOC: LAB 08:04
PROVIDERS: ATTEND Nurse Practitioner
DX: E03.9 Hypothyroidism, unspecified (principal); E78.5 Hyperlipidemia, unspecified
CPT/HCPCS: 36415; 80053; 80061; 81001; 84443; 85025; 85049

== ENCOUNTER 2021-09-09 09:43 | Emergency (ER) | payer MEDICARE, MEDICAID ==
[~2021-09-09] VITALS: Ht 162.6 cm; Wt 61.2 kg
[2021-09-09 10:50] LABS: Basophils # (auto) 0.1 10 ^3/uL (0-0.2); Eosinophils # (auto) 0.2 10 ^3/uL (0-0.8); Eosinophils % (auto) 3.1 % (0.0-7.0); Hematocrit 40.7 % (36.0-46.0); Hemoglobin 13.8 g/dL (12.2-16.2); Lymphocytes # (auto) 1.3 10 ^3/uL (0.4-5.4); Lymphocytes % (auto) 26.6 % (10.0-50.0); Mean Corpuscular Hemoglobin 33.4 pg (28.0-32.0); Mean Corpuscular Volume 98.1 fL (80.0-100.0); Monocytes # (auto) 0.9 10 ^3/uL (0-1.3); Monocytes % (auto) 17.4 % (0.0-12.0); Neutrophils # (auto) 2.5 10 ^3/uL (1.6-8.6); Neutrophils % (auto) 50.9 % (37.0-80.0); Nucleated Red Blood Cells % 0.1 %; Red Blood Cells 4.14 10^6/uL (4.0-5.20)
[2021-09-09 11:49] LABS: Albumin 3.4 g/dL (3.4-5.0); BUN/Creatinine Ratio 14.1; Bilirubin, Total 0.5 mg/dL (0.2-1.0); Calcium 8.6 mg/dL (8.5-10.1); Potassium 3.9 mmol/L (3.5-5.1); Total Protein 7.9 g/dL (6.4-8.2)
[2021-09-09 12:10] LABS: Urine Bacteria NONE SEEN /hpf (None Seen); Urine Blood Negative /uL (Negative); Urine Mucus FEW (None Seen); Urine Specific Gravity 1.018 (1.001-1.035); Urine WBC <1 /hpf (0 - 5)
[2021-09-09] MEDS ORDERED: PRED1PAK9 PO (12:24)
[2021-09-09] MEDS ORDERED: FAMO10TA PO (12:24)
[2021-09-09 13:04] VITALS: BP 149/65
== END 2021-09-09 13:14 | disposition home or self-care (01) ==
LOC: ER 09:43
DX: M54.12 Radiculopathy, cervical region (principal); I10 Essential (primary) hypertension; E78.5 Hyperlipidemia, unspecified; J44.9 Chronic obstructive pulmonary disease, unspecified; M10.9 Gout, unspecified; Z95.0 Presence of cardiac pacemaker; Z79.82 Long term (current) use of aspirin; Z79.899 Other long term (current) drug therapy
CPT/HCPCS: 36415; 70450; 71045; 72125; 80053; 81001; 83880; 84484; 85025; 93005

== ENCOUNTER → 2022-02-08 | Outpatient (CLI) | payer MEDICARE, MEDICAID ==
[~2022-02-08] MED LIST changes: +FAMO10TA PO; +PRED1PAK9 PO
== END | disposition home or self-care (01) ==
LOC: Rad HDHVI 10:16
PROVIDERS: ATTEND Internal Medicine Cardiovascular Disease
DX: I08.8 Other rheumatic multiple valve diseases (principal); I10 Essential (primary) hypertension; R06.02 Shortness of breath
CPT/HCPCS: 93306

== ENCOUNTER → 2022-02-20 | Outpatient (CLI) | payer MEDICARE, MEDICAID ==
[~2022-02-20] VITALS: Ht 162.6 cm; Wt 60.3 kg
[~2022-02-20] MED LIST changes: +ADENOSINE 51 MG in GIVE UN-DILUTED 0 ML IV ONE; +ADENOSINE 90 MG/30 ML INJ IV ONE
== END | disposition home or self-care (01) ==
LOC: Rad HDHVI 08:21
PROVIDERS: ATTEND Internal Medicine Cardiovascular Disease
DX: R06.02 Shortness of breath (principal); E78.5 Hyperlipidemia, unspecified; I10 Essential (primary) hypertension; I49.5 Sick sinus syndrome; Z95.0 Presence of cardiac pacemaker
CPT/HCPCS: 78452; 93005; 96374; 96375; A9500; J0153

== ENCOUNTER → 2022-03-06 | Outpatient (CLI) | payer MEDICARE, MEDICAID ==
[~2022-03-06] MED LIST changes: -ADENOSINE 51 MG in GIVE UN-DILUTED 0 ML IV ONE; -ADENOSINE 90 MG/30 ML INJ IV ONE
[2022-03-06 11:37] LABS: Urine Blood Negative /uL (Negative); Urine Specific Gravity 1.025 (1.001-1.035)
[2022-03-06 11:39] LABS: Hematocrit 41.4 % (36.0-46.0); Hemoglobin 13.7 g/dL (12.2-16.2); Mean Corpuscular Hemoglobin 33.2 pg (28.0-32.0); Mean Corpuscular Volume 100.6 fL (80.0-100.0); Red Blood Cells 4.11 10^6/uL (4.0-5.20); Red Cell Distribution Width 13.2 % (11.8-14.3)
[2022-03-06 11:47] LABS: Basophils % (manual) 0 (0.0-2.0); Blast Cells 0; Metamyelocytes % 0; Myelocytes % 0; Promyelocytes % 0; Reactive Lymphocytes 0
[2022-03-06 11:52] LABS: Albumin 3.3 g/dL (3.4-5.0); Potassium 3.8 mmol/L (3.5-5.1)
[2022-03-06 11:59] LABS: BUN/Creatinine Ratio 16.9; Bilirubin, Total 0.5 mg/dL (0.2-1.0); Calcium 8.8 mg/dL (8.5-10.1); Total Protein 7.7 g/dL (6.4-8.2)
[2022-03-06 12:36] LABS: Band Neutrophils % (manual) 1; Eosinophils % (manual) 3 (0-7); Lymphocytes % (manual) 47 (10.0-50.0); Monocytes % (manual) 13 (0-12)
[2022-03-07 09:55] LABS: Free T4 (Free Thyroxine) 1.47 ng/dL (0.89-1.76)
== END | disposition home or self-care (01) ==
LOC: LAB 08:15
PROVIDERS: ATTEND Internal Medicine Cardiovascular Disease
DX: D51.3 Other dietary vitamin B12 deficiency anemia (principal); D64.9 Anemia, unspecified; E11.9 Type 2 diabetes mellitus without complications; E55.9 Vitamin D deficiency, unspecified; I10 Essential (primary) hypertension; R00.2 Palpitations; R53.1 Weakness; R30.0 Dysuria
CPT/HCPCS: 36415; 80053; 80061; 81003; 82306; 82607; 83036; 84439; 84443; 85007; 85027; 87086

== ENCOUNTER 2022-03-18 13:41 | Emergency (ER) | payer MEDICARE, MEDICAID ==
[~2022-03-18] VITALS: Ht 162.6 cm; Wt 60.3 kg
[2022-03-18] MEDS ORDERED: HYDROcodone-ACET 5/325MG TAB PO ONE (14:45)
[2022-03-18 15:00] VITALS: BP 149/63
[2022-03-18] MEDS ORDERED: TRAM-297 PO (15:01)
[2022-03-18] MEDS ORDERED: PRED20TA2 PO (15:01)
== END 2022-03-18 15:05 | disposition home or self-care (01) ==
LOC: ER 13:41
DX: M50.10 Cervical disc disorder with radiculopathy, unspecified cervical region (principal); J44.9 Chronic obstructive pulmonary disease, unspecified; E78.5 Hyperlipidemia, unspecified; I10 Essential (primary) hypertension

== ENCOUNTER → 2023-01-09 | Emergency (ER) | payer MEDICARE, MEDICAID ==
[~2023-01-09] VITALS: Ht 162.6 cm; Wt 54.0 kg
[~2023-01-09] MED LIST changes: +ASPirin 325 MG TAB PO ONE; +DexAMETHasone SOD PHOS 10MG/1ML VIAL INJ IV ONE; +HALOPERIDOL LACTATE 5 MG/ML INJ VIAL IV ONE; +HYDROcodone-ACET 5/325MG TAB PO ONE; +IOHEXOL 350 MG/ML 100ML IJ ONE; +LACTATED RINGER'S 1,000 ML IV ONE; +METOCLOPRAMIDE HCL 5MG/ml INJ 2ml VIAL IV ONE; +PRED20TA2 PO; +TRAM-297 PO; +diphenhdrAMINE HCL 50 MG/1 ML VL IV ONE
[2023-01-09 09:21] LABS: Albumin 3.4 g/dL (3.4-5.0); Calcium 8.3 mg/dL (8.5-10.1); Magnesium 2.3 mg/dL (1.6-2.6); Potassium 4.2 mmol/L (3.5-5.1)
[2023-01-09 09:25] LABS: BUN/Creatinine Ratio 16.7 (10.0-20.0); Bilirubin, Total 0.5 mg/dL (0.2-1.0)
[2023-01-09 09:37] LABS: Hemoglobin 13.7 g/dL (12.2-16.2); Mean Corpuscular Hemoglobin 33.1 pg (28.0-32.0); Mean Corpuscular Hgb Conc. 32.5 g/dL (32.0-36.0); Mean Corpuscular Volume 101.8 fL (80.0-100.0); Red Blood Cells 4.13 10^6/uL (4.0-5.20); Red Cell Distribution Width 12.9 % (11.8-14.3); White Blood Cell 3.6 10^3/uL (4.4-10.8)
[2023-01-09 09:40] LABS: Basophils % (manual) 0 (0.0-2.0); Blast Cells 0; Monocytes % (manual) 0 (0-12); Myelocytes % 0; Promyelocytes % 0; Reactive Lymphocytes 0
[2023-01-09 11:51] LABS: Band Neutrophils % (manual) 2; Eosinophils % (manual) 2 (0-7); Lymphocytes % (manual) 43 (10.0-50.0)
[2023-01-09 11:52] LABS: Metamyelocytes % 3
[2023-01-09 12:04] VITALS: BP 136/62
== END | disposition home or self-care (01) ==
LOC: ER 06:31
DX: R51.9 Headache, unspecified (principal); I65.01 Occlusion and stenosis of right vertebral artery; R07.89 Other chest pain; I10 Essential (primary) hypertension; J44.9 Chronic obstructive pulmonary disease, unspecified; E78.5 Hyperlipidemia, unspecified; M10.9 Gout, unspecified; Z95.0 Presence of cardiac pacemaker
CPT/HCPCS: 36415; 70450; 70496; 71045; 80053; 83735; 83880; 84484; 85007; 85027; 93005; 96361; 96374; 96375; 99285; J1100; J1200; J7120; Q9967

== ENCOUNTER 2023-11-27 16:34 | Emergency (ER) | payer OTHER, MEDICAID ==
[~2023-11-27] VITALS: Ht 162.6 cm; Wt 54.0 kg
[~2023-11-27 16:34] MED LIST changes: -ASPI325T4 PO; +ASPI325T6 PO; -ASPirin 325 MG TAB PO ONE; -DexAMETHasone SOD PHOS 10MG/1ML VIAL INJ IV ONE; -HALOPERIDOL LACTATE 5 MG/ML INJ VIAL IV ONE; -HYDROcodone-ACET 5/325MG TAB PO ONE; -IOHEXOL 350 MG/ML 100ML IJ ONE; -LACTATED RINGER'S 1,000 ML IV ONE; -METOCLOPRAMIDE HCL 5MG/ml INJ 2ml VIAL IV ONE; -diphenhdrAMINE HCL 50 MG/1 ML VL IV ONE
[2023-11-27 18:38] VITALS: BP 116/56; PULSE 69; RESP 18; TEMP 98.2; O2SAT 98
[2023-11-27] MEDS ORDERED: CEPH500C PO (19:31)
[2023-11-27] MEDS ORDERED: ACET500T58 PO (19:31)
[2023-11-27] MEDS: TETANUS-DIPTH-ACEL PERTUSSIS 0.5ML SYR Tdap IM ONE (20:04)
[2023-11-27] MEDS: HYDROcodone-ACET 5/325MG TAB PO ONE (20:05)
[2023-11-27] MEDS: ONDANSETRON ODT 4 MG TAB PO ONE (20:05)
== END 2023-11-27 20:13 | disposition home or self-care (01) ==
LOC: ER 16:34
DX: S61.210A Laceration without foreign body of right index finger without damage to nail, initial encounter (principal); I10 Essential (primary) hypertension; J44.9 Chronic obstructive pulmonary disease, unspecified; M10.9 Gout, unspecified; E78.5 Hyperlipidemia, unspecified; F15.90 Other stimulant use, unspecified, uncomplicated; Z98.890 Other specified postprocedural states; Z79.899 Other long term (current) drug therapy; W26.0XXA Contact with knife, initial encounter; Y93.89 Activity, other specified; Y92.89 Other specified places as the place of occurrence of the external cause; Y99.8 Other external cause status
CPT/HCPCS: 12002; 90471; 90715; 99283; Q0162

== ENCOUNTER 2024-12-17 11:34 | Inpatient (IN) | payer OTHER, MEDICAID ==
[~2024-12-17] VITALS: Ht 162.6 cm; Wt 60.5 kg
[~2024-12-17 11:34] MED LIST changes: +ACET500T58 PO; +CEPH500C PO
[2024-12-17 12:23] LABS: Hematocrit 45.6 % (36.0-46.0); Hemoglobin 15.5 g/dL (12.2-16.2); Mean Corpuscular Hemoglobin 34.3 pg (28.0-32.0); Mean Corpuscular Hgb Conc. 33.9 g/dL (32.0-36.0); Mean Corpuscular Volume 101.4 fL (80.0-100.0); Platelet Count (auto) 130 10^3/uL (140-450); Red Cell Distribution Width 13.4 % (11.8-14.3); White Blood Cell 3.7 10^3/uL (4.4-10.8)
[2024-12-17 12:28] LABS: Basophils % (manual) 0 (0.0-2.0); Blast Cells 0; Metamyelocytes % 0; Myelocytes % 0; Promyelocytes % 0; Reactive Lymphocytes 0
[2024-12-17 12:36] LABS: Alanine Aminotransferase 27 U/L (7-40); Albumin 4.6 g/dL (3.2-4.8); Alkaline Phosphatase 87 U/L (46-116); Anion Gap 7 (5-15); Aspartate Aminotransferase 37 U/L (13-40); BUN/Creatinine Ratio 16.1 (10.0-20.0); Bilirubin, Total 0.9 mg/dL (0.2-1.0); Blood Urea Nitrogen 10 mg/dL (9-23); Calcium 10.1 mg/dL (8.7-10.4); Carbon Dioxide 24 mmol/L (20-31); Glucose 82 mg/dL (74-106); Potassium 4.2 mmol/L (3.5-5.1); Sodium 140 mmol/L (136-145)
[2024-12-17 12:38] LABS: Chloride 109 mmol/L (98-107)
--- NOTE | 2024-12-17 12:41 | DVH ---
EXAM: CT HEAD WITHOUT CONTRAST INDICATION: DIZZINESS TECHNIQUE: CT of the head without intravenous contrast. Coronal and sagittal reformatted images are s ubmitted. Radiation Dose : 1. Head: CT Dose: CTDI volume is 50.87 mGy. Dose-length product is 798.97 mGy*cm The dose indicators for CT are the volume Computed Tomography (CT) Dose Index (CTDIvol) and the Dose Length Product (DLP), and are measured in units of mGy and mGy-cm, respectively. These indicators are not patient dose, but values generated from the CT scanner acquisition factors. The report includes radiation exposure data for exposures received during this examination. All CT scans at this medical facility are performed using dose modulation techniques as appropriate to a performed exam including the following: Automated exposure control was utilized; adjustment of the MA and/or KV according to patient size; and use of iterative reconstruction technique. COMPARISON: CT HEAD WITHOUT CONTRAST on DOS: 01/09/23, FINDINGS: There is no evidence of acute intracranial hemorrhage, extra-axial collection, mass effect, midline s hift, herniation or hydrocephalus. Postsurgical changes adjacent to the left cavernous ICA consistent with a pipeline device from prior aneurysm repair. There are periventricular and subcortical hypodensities, nonspecific, but likely reflecting sequelae of chronic microvascular ischemic changes. The ventricles, sulci and cisterns are age appropriate. The hickey-white differentiation is intact. The visualized paranasal sinuses and mastoid air cells are clear. Left frontal bone craniotomy postsurgical change. No acute calvarial abnormality. The surrounding sof t tissues are unremarkable. IMPRESSION: 1. No acute intracranial abnormality.
[2024-12-17] MEDS: ASPirin 325 MG TAB PO ONE (12:58)
--- NOTE | 2024-12-17 13:28 | DVH ---
EXAM: XY CHEST PORTABLE HISTORY: cp COMPARISON: XY CHEST PORTABLE on DOS: 01/09/23, CHEST PORTABLE on DOS: 09/09/21 TECHNIQUE: Portable AP view of the chest was performed. FINDINGS: No pneumothorax, consolidative infiltrates, or pulmonary edema. The heart is not enlarged. Left chest pacemaker is re-identified. IMPRESSION: No acute intrathoracic process.
[2024-12-17 13:37] LABS: Band Neutrophils % (manual) 1; Eosinophils % (manual) 1 (0-7)
[2024-12-17 13:39] LABS: Large Platelets FEW; Macrocytosis Slight; Platelet Estimate Decreased
[2024-12-17 13:40] LABS: Lymphocytes % (manual) 42 (10.0-50.0); Monocytes % (manual) 18 (0-12)
[2024-12-17 14:14] VITALS: RESP 16; O2SAT 98
[2024-12-17 14:35] LABS: Potassium 4.2 mmol/L (3.5-5.1); Sodium 140 mmol/L (136-145)
[2024-12-17 14:36] LABS: Anion Gap 11 (5-15)
[2024-12-17 14:37] LABS: Calcium 10.1 mg/dL (8.7-10.4)
[2024-12-17 14:41] LABS: BUN/Creatinine Ratio 15.9 (10.0-20.0); Blood Urea Nitrogen 10 mg/dL (9-23); Glucose 81 mg/dL (74-106)
[2024-12-17 14:43] LABS: Carbon Dioxide 19 mmol/L (20-31); Chloride 110 mmol/L (98-107)
--- NOTE | 2024-12-17 15:25 | ED.PDOC ---
History of Present Illness HPI Comments 74F presents to the ER w/ no prior Hx associated to the c/c of dizziness. Pt reports on having numbness from the pt's elbow to writs w/ head heaviness and dizziness. Pt reports that all the symptoms lasted 1 minute. PMHx of COPD, Gout, High Lipids, HTN and Thyroid/ SHx of Pacemaker. Denies chills, fever, N/V/D, SOB, CP No other associated symptoms, modifiers, recent injuries or sick contacts present at this time. Chief Complaint: Dizziness Time Seen by MD: 12:40 Primary Care Provider: JEREMY Reviewed Notes: Nurses Notes, Medications, Allergies Allergies: Coded Allergies: NO KNOWN ALLERGIES (Unverified , 11/16/17) Home Meds Active Scripts Cephalexin Monohydrate (Cephalexin) 500 Mg Cap, 1 CAP PO BID for 7 Days, #14 CAP 0 Refills Prov:YULI LAKHANI 11/27/23 Acetaminophen (Acetaminophen) 500 Mg Tab, 500 MG PO Q4HPRN, #30 TAB 0 Refills Prov:YULI LAKHANI 11/27/23 Tramadol Hcl (Ultram) 50 Mg Tab, 1 TAB PO BID, #20 TAB Prov:JAVI HERMOSILLO 03/18/22 Prednisone (Prednisone) 20 Mg Tab, 40 MG PO DAILY, #20 MG Prov:JAVI HERMOSILLO 03/18/22 Famotidine (Zantac 360) 10 Mg Tab, 10 MG PO DAILY for 10 Days, #10 TAB Prov:ELI ARNOLD MD 09/09/21 Prednisone (Prednisone) 10 Mg Edin, 10 MG PO DAILY for 10 Days, #1 PACK Prov:ELI ARNOLD MD 09/09/21 Reported Medications Lactobacillus (PROBIOTIC) Cap, 1 CAP OR DAILY, CAP 11/16/17 Pantoprazole Sodium Sesquihydr (Protonix) 40 Mg Tab, 40 MG PO DAILY, #30 TAB 02/02/17 Aspirin (Aspirin) 325 Mg Tab, 325 MG PO DAILY for 30 Days, MG 02/02/17 Amlodipine Besylate (NORVASC TABLET) 5 Mg Tb, 5 MG OR DAILY 04/17/16 Information Source: Patient Mode of Arrival: Ambulatory Severity: Moderate Timing: Hours Duration: Since onset, Hours Prehospital treatment: None Past Medical History PAST MEDICAL HISTORY: COPD, Gout, High Lipids, HTN, Thyroid Surgical History: Pacemaker ROUSTABOUT HEAD History: No Pertinent ROUSTABOUT HEAD History Family History Family History: Reviewed,noncontributory to illness, Unknown Social History Smoker: Non-Smoker Alcohol: Denies ETOH Use Drugs: Unknown Lives In: Home Constitutional: denies: chills, diaphoresis, fatigue, fever, malaise, sweats, weakness, others EENTM: denies: blurred vision, double vision, ear bleeding, ear discharge, ear drainage, ear pain, ear ringing, eye pain, eye redness, hearing loss, mouth pain, mouth swelling, nasal discharge, nose bleeding, nose congestion, nose pain, photophobia, tearing, throat pain, throat swelling, voice changes, others Respiratory: denies: cough, hemoptysis, orthopnea, SOB at rest, shortness of breath, SOB with excertion, stridor, wheezing, others Cardiovascular: denies: chest pain, dizzy spells, diaphoresis, Dyspnea on exertion, edema, irregular heart beat, left arm pain, lightheadedness, palpitations, PND, syncope, others Gastrointestinal: denies: abdomen distended, abdominal pain, blood streaked bowels, constipated, diarrhea, dysphagia, difficulty swallowing, hematemesis, melena, nausea, poor appetite, poor fluid intake, rectal bleeding, rectal pain, vomiting, others Genitourinary: denies: abnormal vagina bleeding, burning, dyspareunia, dysuria, flank pain, frequency, hematuria, incontinence, pain, , vagina discharge, urgency, others Neurological: reports: dizziness; denies: fainting, headache, left sided numbness, left sided weakness, numbness, paresthesia, pre-existing deficit, right sided numbness, right sided weakness, seizure, speech problems, tingling, tremors, weakness, others Musculoskeletal: denies: back pain, gout, joint pain, joint swelling, muscle pain, muscle stiffness, neck pain, others Integumetry: denies: bruises, change in color, change in hair/nails, dryness, laceration, lesions, lumps, rash, wounds, others Allergic/Immunocompromised: denies: Difficulty Healing, Frequent Infections, Hives, Itching, others Hematologic/Lymphatic: denies: anemia, blood clots, easy bleeding, easy bruising, swollen glands, others Endocrine: denies: excessive hunger, excessive sweating, excessive thirst, excessive urination, flushing, intolerance to cold, intolerance to heat, unexplained weight gain, unexplained weight loss, others Psychiatric: denies: anxiety, bipolar disorder, depression, hopeless, panic disorder, schizophrenia, sleepless, suicidal, others All Other Systems: Reviewed and Negative Physical Exam General Appearance: No Apparent Distress, Normal HEENT: Normal ENT Inspection, Pharynx Normal, TMs Normal Neck: Full Range of Motion, Non-Tender, Normal, Normal Inspection Respiratory: Chest Non-Tender, Lungs Clear, No Accessory Muscle Use, No Respiratory Distress, Normal Breath Sounds Cardiovascular: No Edema, No JVD, No Murmur, No Gallop, Normal Peripheral Pulses, Regular Rate/Rhythm Breast Exam: Deferred Gastrointestinal: No Organomegaly, Non Tender, No Pulsatile Mass, Normal Bowel Sounds, Soft Genitalia: Deferred Pelvic: Deferred Rectal: Deferred Extremities: No calf tenderness, Normal capillary refill, Normal inspection, Normal range of motion, Non-tender, No pedal edema Musculoskeletal : Apperance: Normal Neurologic: Alert, die attacher II-XII nml as Tested, No Motor Deficits, Normal Affect, Normal Mood, No Sensory Deficits Cerebellar Function: Normal Reflexes: Normal Skin: Dry, Normal Color, Warm Lymphatic: No Adenopathy Was a procedure done? Was a procedure done?: No Differential Dx Considerations may include: acs, tia, anxiety, radiculopathy, musculoskeletal pain, angina equivalent X-Ray, Labs, Meds, VS Vital Signs Date Time Temp Pulse Resp B/P (MAP) Pulse Ox O2 Delivery O2 Flow Rate FiO2 12/17/24 18:30 97.6 78 20 136/84 (101) 99 97.6 12/17/24 16:06 98.1 60 20 145/65 (91) 96 98.1 12/17/24 14:14 98.4 59 16 106/67 (80) 98 98.4 12/17/24 14:14 16 98 Room Air* 0 21 12/17/24 11:50 60 12/17/24 11:34 97.0 64 16 136/63 (87) 97 97.0 Lab Test 12/17/24 15:40 12/17/24 14:20 12/17/24 12:03 12/17/24 11:49 Range/Units Troponin I High Sensitivity < 3 L 3 L 3 L </=34 ng/L Sodium Level 140 140 136-145 mmol/L Potassium Level 4.2 4.2 3.5-5.1 mmol/L Chloride Level 110 H 109 H 98-107 mmol/L Carbon Dioxide Level 19 L 24 20-31 mmol/L Anion Gap 11 7 5-15 Blood Urea Nitrogen 10 10 9-23 mg/dL Creatinine 0.63 0.62 0.550-1.02 mg/dL Glomerular Filtration Rate Calc 94 95 >90 mL/min BUN/Creatinine Ratio 15.9 16.1 10.0-20.0 Serum Glucose 81 82 74-106 mg/dL Calcium Level 10.1 10.1 8.7-10.4 mg/dL White Blood Count 3.7 L 4.4-10.8 10^3/uL Red Blood Count 4.50 4.0-5.20 10^6/uL Hemoglobin 15.5 12.2-16.2 g/dL Hematocrit 45.6 36.0-46.0 % Mean Corpuscular Volume 101.4 H 80.0-100.0 fL Mean Corpuscular Hemoglobin 34.3 H 28.0-32.0 pg Mean Corpuscular Hemoglobin Concent 33.9 32.0-36.0 g/dL Red Cell Distribution Width 13.4 11.8-14.3 % Platelet Count 130 L 140-450 10^3/uL Mean Platelet Volume 9.8 6.9-10.8 fL Neutrophils (%) (Auto) 37.0-80.0 % Lymphocytes (%) (Auto) 10.0-50.0 % Monocytes (%) (Auto) 0.0-12.0 % Basophils (%) (Auto) 0.0-2.0 % Neutrophils # (Auto) 1.6-8.6 10 ^3/uL Lymphocytes # (Auto) 0.4-5.4 10 ^3/uL Monocytes # (Auto) 0-1.3 10 ^3/uL Differential Total Cells Counted 100.0 100 Neutrophils % (Manual) 38 37.0-80.0 Band Neutrophils % (Manual) 1 Lymphocytes % (Manual) 42 10.0-50.0 Monocytes % (Manual) 18 H 0-12 Eosinophils % (Manual) 1 0-7 Basophils % (Manual) 0 0.0-2.0 Metamyelocytes % (manual) 0 Myelocytes % (Manual) 0 Promyelocytes % (Manual) 0 Blast Cells % (Manual) 0 Reactive Lymphocytes 0 Platelet Estimate Decreased Large Platelets Few Macrocytosis Slight Total Bilirubin 0.9 0.2-1.0 mg/dL Aspartate Amino Transferase (AST) 37 13-40 U/L Alanine Aminotransferase (ALT) 27 7-40 U/L Alkaline Phosphatase 87 46-116 U/L Total Protein 8.0 5.7-8.2 g/dL Albumin 4.6 3.2-4.8 g/dL POC Glucose 80 70-106 mg/dl Current Medications Medications (Trade) Dose Ordered Sig/Joyce Route Start Time Stop Time Status Last Admin Aspirin 325 mg ONCE ONCE PO 12/17/24 12:45 12/17/24 12:46 DC 12/17/24 12:58 Time of 1ST Reevaluation: 13:10 Reevaluation 1ST: Unchanged Time of 2ND Reevaluation: 20:18 Patient Education/Counseling: Diagnosis, Treatment, Prognosis, Need For Follow Up Family Education/Counseling: No Family Present Additional Information The following tests were ordered, and results were reviewed by me: PHA, LAB, XY Additional Information was gathered from interviewing the following independent historians: 11/27/23 I reviewed and agreed with the following test results read by other providers:TJ I discussed treatment and results with medical personnel and: Patient Comprehensive systems review obtained and negative except for what is stated in the HPI. i consulted Dr Ajith Mendoza [facility], who agrees to admit at [facility], per pt's preference #[phone] Departure 1 Departure Time of Disposition: 15:45 Impression: Primary Impression: Anginal equivalent Additional Impressions: Bradycardia Hypotension Qualified Codes: I95.9 - Hypotension, unspecified Disposition: 09 ADMITTED INPATIENT Admit to: Tele Condition: Serious Discharged With: Self Critical Care Note Critical Care Time?: Yes (45 min-critical care time only) Critical care comment: Due to concerns for patients condition deteriorating, the care required my highest level of attention and readiness to intervene. I assessed the patient, reviewed the medical records, ordered the appropriate tests and treatments, then reassessed for results and responsiveness. I communicated with medical personnel and consultants and formulated a plan of care. Total critical care time excludes any procedures Stability Stability form required: No Heart Score Heart Score: Heart Score Response (Comments) Value History Moderate Suspicious 1 EKG Normal 0 Age >65 2 Risk Factors 1 or 2 risk factors 1 Troponin Normal limit 0 Total 4 I personally scribed for GISEL WALKER MD ([email or web address]) on 12/17/24 at 15:25. Electronically submitted by Stanley Gasca ([email or web address]). GISEL WALKER MD Dec 17, 2024 15:25
[2024-12-17 16:00] VITALS: PULSE 60
[2024-12-17 20:00] VITALS: PULSE 60
--- NOTE | 2024-12-17 20:32 | ECG ---
[facility] [place] Test Date: 2024-12-17 Test Time: 11:50:37 Pat Name: TAJ MG Department: ED Room: 0290T Gender: F Mult[employer] Operator: AMAURI : 1950 Requested By: HERMELINDA GONSALVES Order Number: [id number] Reading MD: Raphael Xiong Measurements Intervals [place] Rate: 60 P: 0 OH: 107 QRS: 77 QRSD: 87 T: 71 QT: 432 QTc: 432 Interpretive Statements Atrial-paced rhythm Borderline T abnormalities, lateral leads Electronically Signed On 12-21-2024 20:15:30 PDT by Raphael Xiong Please click the below link to view image of tracing.
--- NOTE | 2024-12-17 21:25 | DVHHPRES ---
History of Present Illness Resident Creating Document: COREY MUNROE History of Present Illness Waleska Garcia is a 74-year-old female patient who presents to the ER with chief complaint of ER head heaviness, frontal headache and photophobia which started today at 8:00 a.m., prompting his visit to the urgent care in [place], who recommended evaluation in the ED. while waiting in the ED patient presented right leg heaviness. Patient also reports auditory hallucinations for the past two days. Denies fever, chills, palpitation, syncope, chest pain, dyspnea, nausea, vomiting, diarrhea sick contacts, recent travel and other motor or sensory deficits. 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 Ex tobacco abuse (20 pack-year history of smoking) quit in 2019. Denies current tobacco, alcohol and other drug abuse Allergies: Denies Home medication: Levothyroxine 50 mcg p.o. daily, Spiriva, aspirin, atorvastatin, amlodipine Patient seen and examined at bedside. Currently has no new complaints. Her headache has mildly improved. Past Medical History Per HPI Past Surgical History Per HPI Family History Per HPI Past Social History Per HPI Review of Systems Review of Systems Per HPI Allergies: Coded Allergies: NO KNOWN ALLERGIES (Unverified , 11/16/17) Exam Vital Signs Vital Signs Date Time Temp Pulse Resp B/P (MAP) Pulse Ox O2 Delivery O2 Flow Rate FiO2 12/17/24 18:30 97.6 78 20 136/84 (101) 99 97.6 12/17/24 14:14 Room Air* 0 21 Exam Patient lying in bed, in no acute distress General: Lucid, afebrile, mucosae are moist Cardiovascular: Normal S1 and S2. No murmurs, gallops or rubs Respiratory: Normal ventilation mechanics. Clear lung sounds on auscultation Abdomen: Soft, nontender, no organomegaly, normal bowel sounds MSK/skin: Mobilizes 4 limbs. Skin is dry and warm Neurological: Oriented in 3 spheres. Mild weakness on right lower limb, no other motor no sensitive deficits. Pupils are isocoric and reactive Labs/Xrays Labs Test 12/17/24 15:40 12/17/24 14:20 12/17/24 12:03 12/17/24 11:49 Range/Units Troponin I High Sensitivity < 3 L </=34 ng/L Sodium Level 140 136-145 mmol/L Potassium Level 4.2 3.5-5.1 mmol/L Chloride Level 110 H 98-107 mmol/L Carbon Dioxide Level 19 L 20-31 mmol/L Anion Gap 11 5-15 Blood Urea Nitrogen 10 9-23 mg/dL Creatinine 0.63 0.550-1.02 mg/dL Glomerular Filtration Rate Calc 94 >90 mL/min BUN/Creatinine Ratio 15.9 10.0-20.0 Serum Glucose 81 74-106 mg/dL Calcium Level 10.1 8.7-10.4 mg/dL White Blood Count 3.7 L 4.4-10.8 10^3/uL Red Blood Count 4.50 4.0-5.20 10^6/uL Hemoglobin 15.5 12.2-16.2 g/dL Hematocrit 45.6 36.0-46.0 % Mean Corpuscular Volume 101.4 H 80.0-100.0 fL Mean Corpuscular Hemoglobin 34.3 H 28.0-32.0 pg Mean Corpuscular Hemoglobin Concent 33.9 32.0-36.0 g/dL Red Cell Distribution Width 13.4 11.8-14.3 % Platelet Count 130 L 140-450 10^3/uL Mean Platelet Volume 9.8 6.9-10.8 fL Neutrophils (%) (Auto) 37.0-80.0 % Lymphocytes (%) (Auto) 10.0-50.0 % Monocytes (%) (Auto) 0.0-12.0 % Basophils (%) (Auto) 0.0-2.0 % Neutrophils # (Auto) 1.6-8.6 10 ^3/uL Lymphocytes # (Auto) 0.4-5.4 10 ^3/uL Monocytes # (Auto) 0-1.3 10 ^3/uL Differential Total Cells Counted 100.0 100 Neutrophils % (Manual) 38 37.0-80.0 Band Neutrophils % (Manual) 1 Lymphocytes % (Manual) 42 10.0-50.0 Monocytes % (Manual) 18 H 0-12 Eosinophils % (Manual) 1 0-7 Basophils % (Manual) 0 0.0-2.0 Metamyelocytes % (manual) 0 Myelocytes % (Manual) 0 Promyelocytes % (Manual) 0 Blast Cells % (Manual) 0 Reactive Lymphocytes 0 Platelet Estimate Decreased Large Platelets Few Macrocytosis Slight Total Bilirubin 0.9 0.2-1.0 mg/dL Aspartate Amino Transferase (AST) 37 13-40 U/L Alanine Aminotransferase (ALT) 27 7-40 U/L Alkaline Phosphatase 87 46-116 U/L Total Protein 8.0 5.7-8.2 g/dL Albumin 4.6 3.2-4.8 g/dL POC Glucose 80 70-106 mg/dl Assessment/Plan Assessment/Plan Assessment: Rule out CVA Cytopenia Thrombocytopenia Leukopenia Hypertension Dyslipidemia Non affiliated arrhythmia status post permanent pacemaker placement COPD in no exacerbation Hypothyroidism History of brain aneurysm status post craniotomy History of CVA Plan: Completed head CT which ruled out acute intracranial pathology. Ordered MRI of head to rule out CVA Ordered CVA workup (echocardiogram and duplex ultrasound of carotids) Ordered pacemaker assessment Goals of care discussed with patient for over 18 minutes: Full code status Discussed case with Dr. Medina, patient and nurses: Patient has significant history of CVA and brain aneurysm, we will order head CT to rule out acute CVA. Patient unstable to transfer to [place] Plan discussed with: Patient, Other (Nurses) My Orders Orders - COREY MUNROE RESIDENT Procedure Category Date Status Time Admit ADMIT 12/17/24 Verified 21:20 Code Status CODE 12/17/24 Verified 21:20 Vital Signs [facility] 12/17/24 Verified 21:20 Review Orders With [facility] 12/17/24 Verified Adm. 21:20 Consistent DIET 12/18/24 [facility]Diabetes Breakfast Notify Of Changes [facility] 12/17/24 Verified From Base 21:20 Advance Directive [facility] 12/17/24 Verified 21:20 Patient Condition ORDERS 12/17/24 Verified 21:20 Allergies [facility] 12/17/24 Verified 21:20 Ondansetron Hcl [facility] 12/17/24 Verified (Zofran) 21:30 Morphine 2mg Iv Q4hprn PHA 12/17/24 Verified 21:30 Lovenox 40mg PHA 12/18/24 Verified 10:00 Nitroglycerin PHA 12/17/24 Verified Sublingual (Ntrostat 21:30 Morphine Sulfate PHA 12/17/24 Verified Injection 21:30 Oxygen By Nasal RT 12/17/24 Verified Cannula 21:20 Stat Ekg For Chest [facility] 12/17/24 Verified Pain 21:20 Notify Of Changes [facility] 12/17/24 Verified From Base 21:20 Water Carter For [facility] 12/17/24 Verified 24 Hours 21:20 Emergency Dysrhythmia [facility] 12/17/24 Verified Protocol 21:20 Rhythm Strips Once [facility] 12/17/24 Verified Every Shift 21:20 Vitamin D, 25-Hydroxy LAB 12/17/24 Verified 21:20 Vitamin B12 LAB 12/17/24 Verified 21:20 Urinalysis LAB 12/17/24 Verified 21:20 Thyroid Stimulating LAB 12/17/24 Verified Hormone 21:20 Phosphorus LAB 12/17/24 Verified 21:20 Magnesium LAB 12/17/24 Verified 21:20 Lipid Panel LAB 12/17/24 Verified 21:20 Hemoglobin A1c LAB 12/17/24 Verified 21:20 Drug Screen LAB 12/17/24 Verified 21:20 Complete Blood Count LAB 12/18/24 Verified 04:00 Comprehensive LAB 12/18/24 Verified Metabolic Panel 04:00 Date of Service: Dec 17, 2024 Billing Provider: ROSALINE MEDINA MD Common Visit Codes: 52013-ZVMRHME INP/OBS CARE (HIGH) Secondary Visit Codes: 03945-[id number] CARE PLAN 30 MINUTES COREY MUNROE RESIDENT Dec 17, 2024 21:25 ROSALINE MEDINA MD Dec 19, 2024 11:38
[2024-12-17] MEDS ORDERED: MORPHINE SULFATE INJ 2 MG/ml SYRG IV PRN ×2 (21:30)
[2024-12-17] MEDS ORDERED: ONDANSETRON HCL 4 MG/2 ML VIAL IV PRN (21:30)
[2024-12-17] MEDS ORDERED: NITROGLYCERIN 0.4 MG SL TAB SL PRN (21:30)
[2024-12-17 21:49] LABS: Phosphorus 3.5 mg/dL (2.4-5.1)
[2024-12-17 23:27] VITALS: PULSE 61; RESP 16; O2SAT 98
[2024-12-17 23:42] VITALS: BP 151/55; PULSE 60; RESP 18; TEMP 98.3; O2SAT 97
[2024-12-18] VITALS (14 sets, daily range): BP systolic 115–151; BP diastolic 47–68; PULSE 54–65; RESP 16–20; TEMP 97.4–98.3; O2SAT 95–100
[2024-12-18] MEDS ORDERED: TIOT17SP INH (00:05)
[2024-12-18] MEDS ORDERED: LEVO50TA7 PO (00:05)
[2024-12-18] MEDS ORDERED: ASPI-543 PO (00:05)
[2024-12-18] MEDS ORDERED: CHOL20007 PO (00:07)
[2024-12-18] MEDS ORDERED: CYA100I IM (00:07)
[2024-12-18] MEDS: LEVALBUTEROL HCL 1.25 MG/3 ML NEB NEB SCH (00:08)
[2024-12-18] MEDS: ATORVASTATIN 20 MG TAB PO ONE (00:27)
[2024-12-18 00:30] LABS: Urine Bacteria FEW /hpf (None Seen); Urine Blood Negative /uL (Negative); Urine Clarity Clear (Clear); Urine Color Yellow (Yellow); Urine Mucus FEW (None Seen); Urine Protein, UAD Negative (Negative); Urine Specific Gravity 1.023 (1.001-1.035); Urine Squamous Epithelial Cell FEW /hpf (<5); Urine Urobilinogen Normal (Negative); Urine WBC 1 /HPF (0-5); Urine pH 5.5 (5.0-9.0)
[2024-12-18 01:57] LABS: Cannabinoid Screen, Urine Pos (NEGATIVE)
[2024-12-18 02:04] LABS: Amphetamine Screen, Urine Neg (NEGATIVE); Barbiturate Scree,Urine Neg (NEGATIVE); Benzodiazephine Screen, Urine Neg (NEGATIVE); Cocaine Screen, Urine Neg (NEGATIVE); Opiate Scree,Urine Neg (NEGATIVE); Phencyclidine Screen, Urine Neg (NEGATIVE)
[2024-12-18] MEDS: ACETAMINOPHEN 500 MG TAB or CAP PO SCH (03:12)
[2024-12-18] MEDS: LEVOTHYROXINE SODIUM 50 MCG TAB PO SCH (05:45)
[2024-12-18 05:47] LABS: Red Cell Distribution Width 13.2 % (11.8-14.3)
[2024-12-18 05:50] LABS: Hematocrit 38.4 % (36.0-46.0); Hemoglobin 13.4 g/dL (12.2-16.2); Mean Corpuscular Hemoglobin 34.7 pg (28.0-32.0); Mean Corpuscular Hgb Conc. 34.8 g/dL (32.0-36.0); Mean Corpuscular Volume 99.7 fL (80.0-100.0); Platelet Count (auto) 130 10^3/uL (140-450); Red Blood Cells 3.85 10^6/uL (4.0-5.20); White Blood Cell 3.4 10^3/uL (4.4-10.8)
[2024-12-18 06:02] LABS: Alanine Aminotransferase 23 U/L (7-40); Albumin 3.9 g/dL (3.2-4.8); Alkaline Phosphatase 71 U/L (46-116); Anion Gap 10 (5-15); Aspartate Aminotransferase 30 U/L (13-40); BUN/Creatinine Ratio 25.9 (10.0-20.0); Bilirubin, Total 0.9 mg/dL (0.2-1.0); Blood Urea Nitrogen 14 mg/dL (9-23); Calcium 9.2 mg/dL (8.7-10.4); Carbon Dioxide 23 mmol/L (20-31); Chloride 109 mmol/L (98-107); Glucose 84 mg/dL (74-106); Potassium 3.6 mmol/L (3.5-5.1); Sodium 142 mmol/L (136-145); Total Protein 6.9 g/dL (5.7-8.2)
[2024-12-18 06:14] LABS: Band Neutrophils % (manual) 0; Basophils % (manual) 0 (0.0-2.0); Blast Cells 0; Metamyelocytes % 0; Myelocytes % 0; Promyelocytes % 0; Reactive Lymphocytes 0
[2024-12-18] MEDS: IPRATROPIUM BROM 0.5 MG/2.5ML INH SOL NEB SCH (06:31)
[2024-12-18 07:12] LABS: Eosinophils % (manual) 1 (0-7); Lymphocytes % (manual) 49 (10.0-50.0); Monocytes % (manual) 14 (0-12)
[2024-12-18 07:13] LABS: Platelet Estimate Decreased
--- NOTE | 2024-12-18 09:41 | DVH ---
PROCEDURE: US CAROTID DUPLX W COLOR DOP 12/18/2024 08:21 AM INDICATION: CVA workup COMPARISON: None TECHNIQUE: Real-time grayscale and color Doppler images of the neck arteries were obtained with spect ral analysis performed. FINDINGS: RIGHT: Mild mixed plaque formation noted at the carotid bulb proximal ICA. Normal spectral waveforms are see n. ICA peak systolic velocity: 78 cm/s ICA end-diastolic velocity: 20 cm/s ICA/CCA ratios: 0.8 LEFT: Mild soft plaque formation is seen at the carotid bulb. Normal spectral waveforms are seen. ICA peak systolic velocity: 81 cm/s ICA end-diastolic velocity: 14 cm/s ICA/CCA ratios: 0.9 VERTEBRAL ARTERIES: Normal antegrade flow is seen bilaterally. Normal spectral waveforms. IMPRESSION: 1. No hemodynamically significant carotid artery stenosis identified bilaterally. Reference: Radiology 2003; 229:340-346 Normal ICA PSV is <125 cm/sec and no plaque or intimal thickening is visible sonographically addition al criteria include ICA/CCA PSV ratio <2.0 and ICA EDV <40 cm/sec <50% ICA stenosis ICA PSV is <125 cm/sec and plaque or intimal thickening is visible sonographically additional criteria include ICA/CCA PSV ratio <2.0 and ICA EDV <40 cm/sec 50-69% ICA stenosis ICA PSV is 125-230 cm/sec and plaque is visible sonographically additional criter ia include ICA/CCA PSV ratio of 2.0-4.0 and ICA EDV of 40-100 cm/sec 70% ICA stenosis but less than near occlusion ICA PSV is >230 cm/sec and visible plaque and luminal narrowing are seen at hickey-scale and color Doppler ultrasound (the higher the Doppler parameters lie above the threshold of 230 cm/sec, the greater the likelihood of severe disease) additional criteria include ICA/CCA PSV ratio >4 and ICA EDV >100 cm/sec
[2024-12-18] MEDS: ENOXAPARIN SOD 40 MG/0.4 ML SYRINGE SC SCH (09:44)
[2024-12-18] MEDS: amLODIPine BESYLATE 5 MG TAB PO SCH (09:45)
[2024-12-18] MEDS: PANTOPRAZOLE 40 MG TAB PO SCH (09:45)
--- NOTE | 2024-12-18 13:29 | DVHSR ---
APPROVED REPORT EXAM: Two-dimensional and M-mode echocardiogram with Doppler, color Doppler and Bubble Study. Blood Pressure: 115/47 mmHg INDICATION CVA/TIA: RISK FACTORS Height: 5'4", Weight: 117 DIMENSIONS LVDd4.2 (3.8-5.7cm)LA (2D)3.8 (1.9-4.0cm)Aortic Root2.9 (2.0-3.7cm) LVDs2.7 (2.5-4.0cm)LA (MM) (1.9-4.0cm)Aortic Cusp Exc2.0 (1.5-2.0cm) EF (%) 65.0 (55-70%)Rt. Atrium3.6 (1.9-4.0cm)Asc. Aorta2.9 cm IVSd0.8 (0.7-1.1cm)RV (D)3.5 (1.8-2.4cm) PWd0.8 (0.7-1.1cm) Mitral Valve MitralMitral Stenosis E wave0.43m/sMV Mean GR.mmHg A wave0.52m/sMV Peak GR.mmHg E/A ratio0.82D MVAcm2 DECEL [id number] 1/2 Timems Aortic Valve Aortic ValveAortic Stenosis V10.65m/Tory Mean GR.3mmHg V21.10m/Tory Peak GR.5mmHg LVOT Diameter2.2 (1.8-2.4cm)Doppler AVA2.25cm2 Pulmonic Valve V20.53m/s Tricuspid Valve TR Velocity2.07m/s [id number] ATRIA Injection of contrast documented an interatrial shunt. Conclusion lvef 60% pacing lead in RV mild mitral regurg mild MVP mild Mitral regurg
--- NOTE | 2024-12-18 14:49 | DVHPN2 ---
Progress Note Date Seen: Dec 18, 2024 Medical Necessity Reason Pt with a Central, PICC or Fol: No Subjective Patient reports: No new complaints Review of Systems: HEENT:Normal, CVS:Normal, RESPIRATORY:Normal, GI:Normal, :Normal, MSK:Normal, NEURO:Normal Objective vital signs Vital Sign Date Time Temp Pulse Resp B/P (MAP) Pulse Ox O2 Delivery O2 Flow Rate FiO2 12/18/24 13:30 98.1 63 17 125/50 (75) 98 98.1 12/18/24 08:00 Room Air* 0 21 Total Intake and Output 12/17/24 12/17/24 12/18/24 15:00 23:00 07:00 Intake Total 200 ml Balance 200 ml medications Current Medications Medications Dose Ordered Sig/Joyce Route Start Time Stop Time Status Last Admin Dose Admin Ondansetron HCl 4 mg Q4HP PRN IV 12/17/24 21:30 Morphine Sulfate 2 mg Q4HPRN PRN IV 12/17/24 21:30 Enoxaparin Sodium 40 mg DAILY SC 12/18/24 10:00 12/18/24 09:44 40 MG Nitroglycerin 0.4 mg Q5MINP PRN SL 12/17/24 21:30 Morphine Sulfate 2 mg Q30M PRN IV 12/17/24 21:30 Acetaminophen 500 mg Q4HPRN PO 12/18/24 02:00 12/18/24 13:17 500 MG Amlodipine Besylate 5 mg DAILY PO 12/18/24 10:00 12/18/24 09:45 5 MG Pantoprazole Sodium 40 mg DAILY PO 12/18/24 10:00 12/18/24 09:45 40 MG Levothyroxine Sodium 50 mcg QAM@0600 PO 12/18/24 06:00 12/18/24 05:45 50 MCG Ipratropium [place] 0.5 mg Q6HWA NEB 12/18/24 06:00 12/18/24 06:31 0.5 MG Levalbuterol HCl 0.625 mg Q6HR NEB 12/18/24 00:00 12/18/24 06:31 0.625 MG Atorvastatin Calcium 40 mg HS PO 12/18/24 22:00 Aspirin 81 mg DAILY PO 12/19/24 10:00 UNV Tramadol HCl 50 mg Q6HP PRN PO 12/18/24 14:45 UNV Examination: GENERAL:Normal, HEENT:Normal, NECK:Normal, LUNGS:Normal, CVS:Normal, ABDOMEN:Normal, MSK:Normal, SKIN:Normal, NEURO:Normal, :Normal laboratory and microbiology Laboratory Tests 12/18/24 04:41 Test 12/18/24 04:41 Range/Units Serum Glucose 84 74-106 mg/dL Problem List/Assessment/Plan Problem List/Assessment/Plan #1 ?acute cva/severe headache: asa, neuro eval #2 s/p pacer #3 copd #4 hypothyroidism #5 htn #6 hyperlipidemia #7 h/o brain aneurysm/craniotomy unstable for transfer advance care planning- full code- time spent 19 mins Plan discussed with: Patient My Orders My Orders Orders - KATHERINE CONCEPCION MD Procedure Category Date Status Time * Neurology Consult CONS 12/18/24 Transmitted 14:42 Aspirin Tablet PHA 12/18/24 Transmitted 14:45 Aspirin Tablet PHA 12/19/24 Transmitted 10:00 Pt Request For Service PT 12/18/24 Logged 14:42 Tramadol Hcl (Ultram) PHA 12/18/24 Transmitted 14:45 Date of Service: Dec 18, 2024 Billing Provider: KATHERINE CONCEPCION MD Common Visit Codes: 59866-[id number] INP/OBS CARE(HIGH) Secondary Visit Codes: [id number] CARE PLAN 30 MINUTES KATHERINE CONCEPCION MD Dec 18, 2024 14:49
[2024-12-18] MEDS: ASPirin 81 mg TAB PO ONE (17:34)
--- NOTE | 2024-12-18 21:34 | DVHINCON2 ---
Date of service: Dec 18, [address] Ramirez Reason for Consultation ? CVA History of Present Illness Ms. Garcia is a 74 years old right-handed female with a history of Hypertension, dyslipidemia, heart disease, COPD, thyroid disorder, brain aneurysm status post craniotomy, the patient came to the hospital with a chief complaint of dizziness. At this time, she was alert and fully oriented, she provided the following history I saw her on 07/03/2017 for stroke Around 8 a.m. on 12/17/2024, she woke up with a pressure in the head (not headache), pressure in the left eye, dizziness/spinning sensation, tingling between the left elbow and wrist, weakness in the left upper extremity and he decided to bring him to medical attention. In the ER, she developed weakness in the right thigh. She reported all her complaints except for the left eye pressure have resolved after she came to hospital Because of intense headache in 2002, the patient was found to have brain aneurysm and she was treated with craniotomy. At home, she takes aspirin 81 mg daily, Lipitor one tablet daily UDS, 12/18/2024: Cannabinoids Urinalysis, 12/18/2024: Unremarkable WBC/HB/PLT/MCV, 12/18/2024: 3.4/13.4/130/99.7 CMP, 12/18/2024: Unremarkable TG/HDL/LDL/HDL, 01/16/2025: 85/166/84/63 Vitamin B12, 12/17/2024: 701 TSH, 12/17/24: 1.39 Carotid Doppler, 12/18/2024: No hemodynamically significant carotid artery stenosis identified bilaterally Echocardiogram, 12/18/2024: vef 60% pacing lead in RV mild mitral regurg mild MVP mild Mitral regurg Carotid Doppler, 07/03/17: Unremarkable CT brain, 07/03/17: 1. Left frontal craniotomy and and a vascular surgery along the left parasellar region. 2. Remote lacunar infarct involving the right basal caudate nucleus. 3. Mild nonspecific chronic microvascular disease. 4. No evidence of intracranial masses hemorrhages or midline shift. CT head, 07/04/17: Old left frontal-temporal craniotomy with aneurysm surgical clip in the left parasellar region. No acute intracranial hemorrhage or mass effect. Subacute to chronic right caudate nucleus lacunar infarct. Chronic sphenoid sinusitis CT head, 12/17/2024: No acute intracranial abnormality Past Medical History Hypertension, dyslipidemia, heart disease, COPD, thyroid disorder, brain aneurysm status post craniotomy Past Surgical History Pacemaker, craniotomy Family History: Cerebrovascular accident (CVA) grandmother Diabetes mellitus G8 FATHER aunt FH: breast cancer G8 SISTER FHx: coronary artery disease FHx: myocardial infarction Malignant neoplasm of ovary G8 SISTER Systemic lupus erythematosus G8 MOTHER Family History Diabetes, coronary artery disease, heart attack, lupus, cancer, brain aneurysm Social History Smoker: Was a smoker Alcohol: Denies ETOH Use Drugs: Denies Drug Use Lives In: Home Allergies: Coded Allergies: NO KNOWN ALLERGIES (Unverified , 11/16/17) Home Meds Active Scripts Cephalexin Monohydrate (Cephalexin) 500 Mg Cap, 1 CAP PO BID for 7 Days, #14 CAP 0 Refills Prov:YULI LAKHANI 11/27/23 Acetaminophen (Acetaminophen) 500 Mg Tab, 500 MG PO Q4HPRN, #30 TAB 0 Refills Prov:YULI LAKHANI 11/27/23 Tramadol Hcl (Ultram) 50 Mg Tab, 1 TAB PO BID, #20 TAB Prov:JAVI HERMOSILLO 03/18/22 Prednisone (Prednisone) 20 Mg Tab, 40 MG PO DAILY, #20 MG Prov:JAVI HERMOSILLO 03/18/22 Famotidine (Zantac 360) 10 Mg Tab, 10 MG PO DAILY for 10 Days, #10 TAB Prov:ELI ARNOLD MD 09/09/21 Prednisone (Prednisone) 10 Mg Edin, 10 MG PO DAILY for 10 Days, #1 PACK Prov:ELI ARONLD MD 09/09/21 Reported Medications Vitamin B12 (Vitamin B-12) 1,000 Mcg/1 Ml Ij, 1000 MCG IM, INJ 12/18/24 Cholecalciferol (VITAMIN D3) 2,000 Unit Tab, 1 TAB PO DAILY, #30 TAB 5 Refills 12/18/24 Aspirin (Aspir-Low) 81 Mg Tab, 81 MG PO DAILY for 30 Days, MG 12/18/24 Levothyroxine Sodium (Levothyroxine Sodium) 50 Mcg Tab, 1 TAB PO DAILY 12/18/24 Tiotropium [place] Monohydrate (Spiriva Respimat) 2.5 Mcg/Act Spr, 2 PUFF INH DAILY 12/18/24 Lactobacillus (PROBIOTIC) Cap, 1 CAP OR DAILY, CAP 11/16/17 Pantoprazole Sodium Sesquihydr (Protonix) 40 Mg Tab, 40 MG PO DAILY, #30 TAB 02/02/17 Aspirin (Aspirin) 325 Mg Tab, 325 MG PO DAILY for 30 Days, MG 02/02/17 Amlodipine Besylate (NORVASC TABLET) 5 Mg Tb, 5 MG OR DAILY 04/17/16 Current Medications Current Medications Medications (Trade) Dose Ordered Sig/Joyce Route PRN Reason Start Time Stop Time Status Last Admin Ondansetron HCl (Zofran) 4 mg Q4HP PRN IV NAUSEA / VOMITING 12/17/24 21:30 Morphine Sulfate 2 mg Q4HPRN PRN IV SEVERE PAIN (7-10 PAIN SCALE) 12/17/24 21:30 Enoxaparin Sodium (Lovenox) 40 mg DAILY SC 12/18/24 10:00 12/18/24 09:44 Nitroglycerin (Ntrostat Sublingual) 0.4 mg Q5MINP PRN SL FOR CHEST PAIN 12/17/24 21:30 Morphine Sulfate 2 mg Q30M PRN IV FOR CHEST PAIN 12/17/24 21:30 Acetaminophen (Tylenol Tablet Or Capsule) 500 mg Q4HPRN PO 12/18/24 02:00 12/18/24 17:35 Amlodipine Besylate (Norvasc Tablet) 5 mg DAILY PO 12/18/24 10:00 12/18/24 09:45 Pantoprazole Sodium (Protonix Tablet) 40 mg DAILY PO 12/18/24 10:00 12/18/24 09:45 Levothyroxine Sodium (Synthroid Tablet) 50 mcg QAM@0600 PO 12/18/24 06:00 12/18/24 05:45 Ipratropium [place] (Atrovent Medneb) 0.5 mg Q6HWA NEB 12/18/24 06:00 12/18/24 19:06 Levalbuterol HCl (Xopenex Medneb) 0.625 mg Q6HR NEB 12/18/24 00:00 12/18/24 19:06 Atorvastatin Calcium (Lipitor) 40 mg HS PO 12/18/24 22:00 Aspirin 81 mg DAILY PO 12/19/24 10:00 Tramadol HCl (Ultram) 50 mg Q6HP PRN PO MODERATE PAIN (4-6 PAIN SCALE) 12/18/24 14:45 Review of Systems As above, the other system a negative Vital Signs Vital Signs Date Time Temp Pulse Resp B/P (MAP) Pulse Ox O2 Delivery O2 Flow Rate FiO2 12/18/24 19:12 60 16 100 12/18/24 19:06 Room Air 12/18/24 19:06 0 21 12/18/24 17:23 97.5 120/54 (76) 97.5 Physical Exam GENERAL EXAM: General: the patient is well developed and nourished. No acute distress. HEENT: Normocephalic, neck is supple, no carotid bruits. No mass. RESPIRATORY: Normal respiratory effort with symmetrical lung expansion. Lungs clear to auscultation. CARDIOVASCULAR: Regular rate and rhythm with no murmurs. S1, S2. ABDOMEN: Soft, nontender, normal bowel sound NEUROLOGICAL: MENTAL STATUS: Awake and alert. Oriented to person, place, time and general circumstances. Able to give personal history SPEECH, LANGUAGE, HIGHER CORTICAL FUNCTION: no aphasia or dysathria. CRANIAL NERVES: #2: Intact visual alvarez to confrontation. The optic discs were sharp. #3,4,6: Pupils are equal, round and reactive. EOMs full and conjugate. No nystagmus. #5: Facial sensation intact in all three divisions bilaterally. Mandibular strength intact. #7: Facial muscles symmetrical and strength intact. #8: Hearing grossly normal to voice. #9,10: Uvula and soft palate rise in the midline. Swallow and voice are normal. #11: Trapezius and sternomastoid strength intact bilaterally. #12: Tongue midline. No fasciculations or atrophy. SENSATION: Sensation to touch and pinprick is normal. MOTOR: Normal tone in the upper and lower extremity. Normal muscle bulk. No fasciculations. No abnormal movements or posturing. Muscle strength of the major groups in the upper extremities is 5/5. Muscle strength of the major groups in the lower extremities is 5/5. REFLEXES: Deep tendon reflexes symmetrical. No pathological reflexes. CEREBELLAR/COORDINATION: Finger to nose and heel to osuna are normal bilaterally. GAIT/STATION: deferred. Labs/Diagnostic Data Labs Test 12/18/24 04:41 12/18/24 00:00 12/17/24 21:57 12/17/24 15:40 Range/Units White Blood Count 3.4 L 4.4-10.8 10^3/uL Red Blood Count 3.85 L 4.0-5.20 10^6/uL Hemoglobin 13.4 12.2-16.2 g/dL Hematocrit 38.4 # 36.0-46.0 % Mean Corpuscular Volume 99.7 80.0-100.0 fL Mean Corpuscular Hemoglobin 34.7 H 28.0-32.0 pg Mean Corpuscular Hemoglobin Concent 34.8 32.0-36.0 g/dL Red Cell Distribution Width 13.2 11.8-14.3 % Platelet Count 130 L 140-450 10^3/uL Mean Platelet Volume 9.7 6.9-10.8 fL Neutrophils (%) (Auto) 37.0-80.0 % Lymphocytes (%) (Auto) 10.0-50.0 % Monocytes (%) (Auto) 0.0-12.0 % Basophils (%) (Auto) 0.0-2.0 % Neutrophils # (Auto) 1.6-8.6 10 ^3/uL Lymphocytes # (Auto) 0.4-5.4 10 ^3/uL Monocytes # (Auto) 0-1.3 10 ^3/uL Differential Total Cells Counted 100.0 100 Neutrophils % (Manual) 36 L 37.0-80.0 Band Neutrophils % (Manual) 0 Lymphocytes % (Manual) 49 10.0-50.0 Monocytes % (Manual) 14 H 0-12 Eosinophils % (Manual) 1 0-7 Basophils % (Manual) 0 0.0-2.0 Metamyelocytes % (manual) 0 Myelocytes % (Manual) 0 Promyelocytes % (Manual) 0 Blast Cells % (Manual) 0 Reactive Lymphocytes 0 Platelet Estimate Decreased Sodium Level 142 136-145 mmol/L Potassium Level 3.6 3.5-5.1 mmol/L Chloride Level 109 H 98-107 mmol/L Carbon Dioxide Level 23 20-31 mmol/L Anion Gap 10 5-15 Blood Urea Nitrogen 14 9-23 mg/dL Creatinine 0.54 L 0.550-1.02 mg/dL Glomerular Filtration Rate Calc 98 >90 mL/min BUN/Creatinine Ratio 25.9 H 10.0-20.0 Serum Glucose 84 74-106 mg/dL Calcium Level 9.2 8.7-10.4 mg/dL Total Bilirubin 0.9 0.2-1.0 mg/dL Aspartate Amino Transferase (AST) 30 13-40 U/L Alanine Aminotransferase (ALT) 23 7-40 U/L Alkaline Phosphatase 71 46-116 U/L Total Protein 6.9 5.7-8.2 g/dL Albumin 3.9 3.2-4.8 g/dL Urine Color Yellow Yellow Urine Clarity Clear Clear Urine pH 5.5 5.0-9.0 Urine Specific [place] 1.023 1.001-1.035 Urine Protein Negative Negative Urine Ketones Negative Negative Urine Blood Negative Negative /uL Urine Nitrite Negative Negative Urine Bilirubin Negative Negative Urine Urobilinogen Normal Negative mg/dL Urine Leukocyte Esterase Negative Negative /uL Urine RBC 1 0 - 4 /hpf Urine Microscopic WBC 1 0-5 /HPF Urine Squamous Epithelial Cells Few <5 /hpf Urine Bacteria Few H None Seen /hpf Urine Mucus Few None Seen Urine Glucose Normal Normal mg/dL Urine Opiates Screen Neg NEGATIVE Urine Fentanyl Screen Neg NEGATIVE Urine Barbiturates Screen Neg NEGATIVE Urine Phencyclidine Screen Neg NEGATIVE Urine Amphetamines Screen Neg NEGATIVE Urine Benzodiazepines Screen Neg NEGATIVE Urine Cocaine Screen Neg NEGATIVE Urine Cannabinoids Screen Pos NEGATIVE Hemoglobin A1c 5.3 <5.7 % A1C Vitamin B12 Level 701 211-911 pg/mL Vitamin D 25-Hydroxy 55.4 30.0-100 ng/mL Phosphorus Level 3.5 2.4-5.1 mg/dL Magnesium Level 2.0 1.6-2.6 mg/dL Troponin I High Sensitivity < 3 L </=34 ng/L Triglycerides Level 85 < 150 mg/dL Cholesterol Level 166 < 200 mg/dL LDL Cholesterol 84 < 100 mg/dL HDL Cholesterol 63 H 40-59 mg/dL Thyroid Stimulating Hormone (TSH) 1.39 0.55-4.78 uIU/mL Test 12/17/24 12:03 12/17/24 11:49 Range/Units Large Platelets Few Macrocytosis Slight POC Glucose 80 70-106 mg/dl Assessment Personally head, dizziness/vertigo, left forearm paresthesia, right thigh weakness, not typical to acute stroke syndrome, Chronic stroke per CT brain scan Brain aneurysm status post craniectomy Plan/Recommendation Monitoring Supportive treatment Follow up CT brain scan Aspirin 81 mg daily Lipitor 40 mg daily Follow up with doctors on discharge Plan discussed with: Patient, Other HUMAIRA SCHMITT MD Dec 18, 2024 21:34
[2024-12-18] MEDS: ATORVASTATIN 20 MG TAB PO SCH (21:47)
[2024-12-18] MEDS: traMADol HCL 50 MG TAB PO PRN (23:12)
[2024-12-19] VITALS (13 sets, daily range): BP systolic 116–131; BP diastolic 45–64; PULSE 60–70; RESP 16–20; TEMP 97.4–97.9; O2SAT 97–100
[2024-12-19] MEDS: ASPirin 81 mg TAB PO SCH (09:20)
--- NOTE | 2024-12-19 09:23 | DVH ---
EXAM: CT HEAD WITHOUT CONTRAST INDICATION: cva TECHNIQUE: CT of the head without intravenous contrast. Coronal and sagittal reformatted images are s ubmitted. Radiation Dose : 1. Head: CT Dose: CTDI volume is 48.66 mGy. Dose-length product is 682.94 mGy*cm The dose indicators for CT are the volume Computed Tomography (CT) Dose Index (CTDIvol) and the Dose Length Product (DLP), and are measured in units of mGy and mGy-cm, respectively. These indicators are not patient dose, but values generated from the CT scanner acquisition factors. The report includes radiation exposure data for exposures received during this examination. All CT scans at this medical facility are performed using dose modulation techniques as appropriate to a performed exam including the following: Automated exposure control was utilized; adjustment of the MA and/or KV according to patient size; and use of iterative reconstruction technique. COMPARISON: CT HEAD WITHOUT CONTRAST on DOS: 12/17/24 FINDINGS: There is no evidence of acute intracranial hemorrhage, extra-axial collection, mass effect, midline s hift, herniation or hydrocephalus. Pipeline metallic device in the left ICA. The ventricles, sulci and cisterns are age appropriate. The hickey-white differentiation is intact. The visualized paranasal sinuses and mastoid air cells are clear. Left frontal craniotomy. The surrounding soft tissues are unremarkable. IMPRESSION: 1. No evidence of acute intracranial abnormality.
--- NOTE | 2024-12-19 17:30 | DVHDS2 ---
Discharge Summary Date of Admission Dec 17, 2024 at 21:20 Date of Discharge: Dec 19, 2024 Labs/Diagnostic Data: Laboratory Results Test 12/18/24 04:41 12/18/24 00:00 12/17/24 21:57 12/17/24 15:40 White Blood Count 3.4 10^3/uL (4.4-10.8) Red Blood Count 3.85 10^6/uL (4.0-5.20) Hemoglobin 13.4 g/dL (12.2-16.2) Hematocrit 38.4 % (36.0-46.0) Mean Corpuscular Volume 99.7 fL (80.0-100.0) Mean Corpuscular Hemoglobin 34.7 pg (28.0-32.0) Mean Corpuscular Hemoglobin Concent 34.8 g/dL (32.0-36.0) Red Cell Distribution Width 13.2 % (11.8-14.3) Platelet Count 130 10^3/uL (140-450) Mean Platelet Volume 9.7 fL (6.9-10.8) Neutrophils (%) (Auto) % (37.0-80.0) Lymphocytes (%) (Auto) % (10.0-50.0) Monocytes (%) (Auto) % (0.0-12.0) Basophils (%) (Auto) % (0.0-2.0) Neutrophils # (Auto) 10 ^3/uL (1.6-8.6) Lymphocytes # (Auto) 10 ^3/uL (0.4-5.4) Monocytes # (Auto) 10 ^3/uL (0-1.3) Differential Total Cells Counted 100.0 (100) Neutrophils % (Manual) 36 (37.0-80.0) Band Neutrophils % (Manual) 0 Lymphocytes % (Manual) 49 (10.0-50.0) Monocytes % (Manual) 14 (0-12) Eosinophils % (Manual) 1 (0-7) Basophils % (Manual) 0 (0.0-2.0) Metamyelocytes % (manual) 0 Myelocytes % (Manual) 0 Promyelocytes % (Manual) 0 Blast Cells % (Manual) 0 Reactive Lymphocytes 0 Platelet Estimate Decreased Sodium Level 142 mmol/L (136-145) Potassium Level 3.6 mmol/L (3.5-5.1) Chloride Level 109 mmol/L (98-107) Carbon Dioxide Level 23 mmol/L (20-31) Anion Gap 10 (5-15) Blood Urea Nitrogen 14 mg/dL (9-23) Creatinine 0.54 mg/dL (0.550-1.02) Glomerular Filtration Rate Calc 98 mL/min (>90) BUN/Creatinine Ratio 25.9 (10.0-20.0) Serum Glucose 84 mg/dL (74-106) Calcium Level 9.2 mg/dL (8.7-10.4) Total Bilirubin 0.9 mg/dL (0.2-1.0) Aspartate Amino Transferase (AST) 30 U/L (13-40) Alanine Aminotransferase (ALT) 23 U/L (7-40) Alkaline Phosphatase 71 U/L (46-116) Total Protein 6.9 g/dL (5.7-8.2) Albumin 3.9 g/dL (3.2-4.8) Urine Color Yellow (Yellow) Urine Clarity Clear (Clear) Urine pH 5.5 (5.0-9.0) Urine Specific [place] 1.023 (1.001-1.035) Urine Protein Negative (Negative) Urine Ketones Negative (Negative) Urine Blood Negative /uL (Negative) Urine Nitrite Negative (Negative) Urine Bilirubin Negative (Negative) Urine Urobilinogen Normal mg/dL (Negative) Urine Leukocyte Esterase Negative /uL (Negative) Urine RBC 1 /hpf (0 - 4) Urine Microscopic WBC 1 /HPF (0-5) Urine Squamous Epithelial Cells Few /hpf (<5) Urine Bacteria Few /hpf (None Seen) Urine Mucus Few (None Seen) Urine Glucose Normal mg/dL (Normal) Urine Opiates Screen Neg (NEGATIVE) Urine Fentanyl Screen Neg (NEGATIVE) Urine Barbiturates Screen Neg (NEGATIVE) Urine Phencyclidine Screen Neg (NEGATIVE) Urine Amphetamines Screen Neg (NEGATIVE) Urine Benzodiazepines Screen Neg (NEGATIVE) Urine Cocaine Screen Neg (NEGATIVE) Urine Cannabinoids Screen Pos (NEGATIVE) Hemoglobin A1c 5.3 % A1C (<5.7) Vitamin B12 Level 701 pg/mL (211-911) Vitamin D 25-Hydroxy 55.4 ng/mL (30.0-100) Phosphorus Level 3.5 mg/dL (2.4-5.1) Magnesium Level 2.0 mg/dL (1.6-2.6) Troponin I High Sensitivity < 3 ng/L (</=34) Triglycerides Level 85 mg/dL (< 150) Cholesterol Level 166 mg/dL (< 200) LDL Cholesterol 84 mg/dL (< 100) HDL Cholesterol 63 mg/dL (40-59) Thyroid Stimulating Hormone (TSH) 1.39 uIU/mL (0.55-4.78) Test 12/17/24 12:03 12/17/24 11:49 Large Platelets Few Macrocytosis Slight POC Glucose 80 mg/dl (70-106) Other Laboratory Tests 12/18/24 04:41 Brief Hx & Hospital Course: dizziness/vertigo, Likely tension headache, resolving intra cerebral hemorrhage ruled out Concern for CVA/stroke, unable to rule out History of pacemaker, incompatible with MRI left forearm paresthesia, resolving right thigh weakness, resolving Chronic stroke per CT brain scan history of Brain aneurysm status post craniectomy COPD Hypothyroidism Hypertension Hyperlipidemia - hydrate well -Resume cardiac diet -For headaches use Tylenol OTC 1st line, Compazine 5 mg as needed up to 3 times a day -Continue aspirin and Lipitor -Follow up with Cardiology -Follow up with PCP to review discharge Condition at Discharge: Fair Final Diagnosis/Problems List dizziness/vertigo, Likely tension headache, resolving intra cerebral hemorrhage ruled out Concern for CVA/stroke, unable to rule out History of pacemaker, incompatible with MRI intraatrial shunt, PFO possible left forearm paresthesia, resolving right thigh weakness, resolving Chronic stroke per CT brain scan history of Brain aneurysm status post craniectomy COPD Hypothyroidism Hypertension Hyperlipidemia Discharge Disposition: Home Discharge Instruct/Medications Diet: Cardiac 2g Na,low cholest Activity: No Restrictions, As Tolerated Follow Up/Referral: pcp, cardiology Medications: no changes, as below. Discharge Statement: "Patient was advised to return to the ER or call 911 if any headaches, dizziness, shortness of breath, chest pain, abdominal pain, bleeding, fevers, or worsening of medical condition. Patient was counseled about treatment plan, medications, possible side effects, patientverbalized understanding. All questions were answered to the best of my ability. This discharge took greater then 30 minutes in planning, reviewing documentation, counseling the patient, and discussing with other team members." Date of Service: Dec 19, 2024 Billing Provider: OJSEFINA AARON MD Common Visit Codes: 91625-JFR/OBS DISCH DAY >30min JOSEFINA AARON MD Dec 19, 2024 17:30
--- NOTE | 2024-12-19 18:13 | DVHPN2 ---
Subjective 12/19 - doing well. presenting ssx resolving. presenting new complains of hallucinations. low concern for etoh or etoh w/d. will update neuro , consult tele psych. will re-eval in am for stable for discharge. discharge cancelled today. Reviewed: H&P Changes from previous H/P or p: No Changes General: Per HPI Objective Vitals Vital Signs Date Time Temp Pulse Resp B/P (MAP) Pulse Ox O2 Delivery O2 Flow Rate FiO2 12/19/24 17:18 97.8 64 18 131/51 (77) 98 97.8 12/19/24 08:04 Room Air* 0 21 Intake/Output Intake and Output 12/19/24 07:00 Intake Total 500 ml Balance 500 ml Intake Oral 500 ml # Voids 4 Exam GEN: Healthy appearing, well-developed, NAD. HEENT: NC/AT; MMM. CV: RRR, no m/r/g. LUNGS: CTAB, no w/r/c. ABD: Soft, NT/ND, NBS, no masses or organomegaly. EXT: skin Warm, well perfused. no rashes. No clubbing, cyanosis, or edema. NEURO: Ambulating with no limitations. No focal deficits. Medications Current Medications Medications Dose Ordered Sig/Joyce Route Start Time Stop Time Status Last Admin Dose Admin Ondansetron HCl 4 mg Q4HP PRN IV 12/17/24 21:30 Morphine Sulfate 2 mg Q4HPRN PRN IV 12/17/24 21:30 Enoxaparin Sodium 40 mg DAILY SC 12/18/24 10:00 12/19/24 09:19 40 MG Nitroglycerin 0.4 mg Q5MINP PRN SL 12/17/24 21:30 Morphine Sulfate 2 mg Q30M PRN IV 12/17/24 21:30 Acetaminophen 500 mg Q4HPRN PO 12/18/24 02:00 12/19/24 17:14 500 MG Amlodipine Besylate 5 mg DAILY PO 12/18/24 10:00 12/19/24 09:20 5 MG Pantoprazole Sodium 40 mg DAILY PO 12/18/24 10:00 12/19/24 09:20 40 MG Levothyroxine Sodium 50 mcg QAM@0600 PO 12/18/24 06:00 12/19/24 05:26 50 MCG Ipratropium [place] 0.5 mg Q6HWA [facility] 12/18/24 06:00 12/19/24 08:03 0.5 MG Levalbuterol HCl 0.625 mg Q6HR NEB 12/18/24 00:00 12/19/24 08:03 0.625 MG Atorvastatin Calcium 40 mg HS PO 12/18/24 22:00 12/18/24 21:47 40 MG Aspirin 81 mg DAILY PO 12/19/24 10:00 12/19/24 09:20 81 MG Tramadol HCl 50 mg Q6HP PRN PO 12/18/24 14:45 12/18/24 23:12 50 MG Laboratory Results Laboratory Tests 12/18/24 04:41 Urinalysis Test 12/18/24 00:00 Urine Color Yellow (Yellow) Urine Clarity Clear (Clear) Urine pH 5.5 (5.0-9.0) Urine Specific [place] 1.023 (1.001-1.035) Urine Protein Negative (Negative) Urine Ketones Negative (Negative) Urine Blood Negative /uL (Negative) Urine Nitrite Negative (Negative) Urine Bilirubin Negative (Negative) Urine Urobilinogen Normal mg/dL (Negative) Urine Leukocyte Esterase Negative /uL (Negative) Urine RBC 1 /hpf (0 - 4) Urine Microscopic WBC 1 /HPF (0-5) Urine Squamous Epithelial Cells Few /hpf (<5) Urine Bacteria Few /hpf (None Seen) H Urine Mucus Few (None Seen) Urine Glucose Normal mg/dL (Normal) Labs and/or images reviewed: Labs reviewed by me, Image(s) reviewed by me Assessment/Plan Assessment/Plan 12/19 - doing well. presenting ssx resolving. presenting new complains of hallucinations. low concern for etoh or etoh w/d. will update neuro , consult tele psych. will re-eval in am for stable for discharge. discharge cancelled today. diagnosis: dizziness/vertigo, Likely tension headache, resolving intra cerebral hemorrhage ruled out Hallucinations, ongoing concern Concern for CVA/stroke, unable to rule out History of pacemaker, incompatible with MRI left forearm paresthesia, resolving right thigh weakness, resolving Chronic stroke per CT brain scan history of Brain aneurysm status post craniectomy COPD Hypothyroidism Hypertension Hyperlipidemia Plan: - hydrate well PO -Resume diet -For headaches use Tylenol 1st line, Compazine 5 mg 2nd line prn. -Continue aspirin and Lipitor - neurology following - tele psych consulted. diet cardiac DVT ppx - lovenox GI ppx - janene diet medsurg full code Patient is stable for discharge to in network facility [place]. Patient declines transfer Plan discussed with: Patient My Orders Orders - JOSEFINA AARON MD Procedure Category Date Status Time Discharge DISCHARGE 12/19/24 Transmitted 17:09 *Tele Psych Consult CONS 12/19/24 Transmitted 18:07 * [employer] Equipment [employer] CONS 12/19/24 Transmitted Consult Date of Service: Dec 19, 2024 Billing Provider: JOSEFINA AARON MD Common Visit Codes: [id number] INP/OBS CARE(HIGH) JOSEFINA AARON MD Dec 19, 2024 18:13
--- NOTE | 2024-12-19 19:27 | DVHPN2 ---
Progress Note - Dictate Date Seen: Dec 19, 2024 Medical Necessity Reason Pt with a Central, PICC or Fol: No Subjective Ms. Garcia is a 74 years old right-handed female with a history of Hypertension, dyslipidemia, heart disease, COPD, thyroid disorder, brain aneurysm status post craniotomy, the patient came to the hospital with a chief complaint of dizziness. I saw her on 07/03/2017 for stroke I have seen and examined the patient, I have discussed with her nurse, and Dr. Belem Sinha. She was doing fine, alert and oriented x3. He tells me she had auditory hallucination last night but she does not remember what it talked about. There was no associated behavior problem UDS, 12/18/2024: Cannabinoids Urinalysis, 12/18/2024: Unremarkable WBC/HB/PLT/MCV, 12/18/2024: 3.4/13.4/130/99.7 CMP, 12/18/2024: Unremarkable TG/HDL/LDL/HDL, 01/16/2025: 85/166/84/63 Vitamin B12, 12/17/2024: 701 TSH, 12/17/24: 1.39 Carotid Doppler, 12/18/2024: No hemodynamically significant carotid artery stenosis identified bilaterally Echocardiogram, 12/18/2024: vef 60% pacing lead in RV mild mitral regurg mild MVP mild Mitral regurg Carotid Doppler, 07/03/17: Unremarkable CT brain, 07/03/17: 1. Left frontal craniotomy and and a vascular surgery along the left parasellar region. 2. Remote lacunar infarct involving the right basal caudate nucleus. 3. Mild nonspecific chronic microvascular disease. 4. No evidence of intracranial masses hemorrhages or midline shift. CT head, 07/04/17: Old left frontal-temporal craniotomy with aneurysm surgical clip in the left parasellar region. No acute intracranial hemorrhage or mass effect. Subacute to chronic right caudate nucleus lacunar infarct. Chronic sphenoid sinusitis CT head, 12/17/2024: No acute intracranial abnormality CT head, 12/19/24: No evidence of acute intracranial abnormality. vital signs Vital Sign Date Time Temp Pulse Resp B/P (MAP) Pulse Ox O2 Delivery O2 Flow Rate FiO2 12/19/24 17:18 97.8 64 18 131/51 (77) 98 97.8 12/19/24 08:04 Room Air* 0 21 Total Intake and Output 12/18/24 12/18/24 12/19/24 14:59 22:59 06:59 Intake Total 300 ml 200 ml Balance 300 ml 200 ml medications Current Medications Medications Dose Ordered Sig/Joyce Route Start Time Stop Time Status Last Admin Dose Admin Ondansetron HCl 4 mg Q4HP PRN IV 12/17/24 21:30 Morphine Sulfate 2 mg Q4HPRN PRN IV 12/17/24 21:30 Enoxaparin Sodium 40 mg DAILY SC 12/18/24 10:00 12/19/24 09:19 40 MG Nitroglycerin 0.4 mg Q5MINP PRN SL 12/17/24 21:30 Morphine Sulfate 2 mg Q30M PRN IV 12/17/24 21:30 Acetaminophen 500 mg Q4HPRN PO 12/18/24 02:00 12/19/24 17:14 500 MG Amlodipine Besylate 5 mg DAILY PO 12/18/24 10:00 12/19/24 09:20 5 MG Pantoprazole Sodium 40 mg DAILY PO 12/18/24 10:00 12/19/24 09:20 40 MG Levothyroxine Sodium 50 mcg QAM@0600 PO 12/18/24 06:00 12/19/24 05:26 50 MCG Ipratropium [place] 0.5 mg Q6HWA [facility] 12/18/24 06:00 12/19/24 08:03 0.5 MG Levalbuterol HCl 0.625 mg Q6HR NEB 12/18/24 00:00 12/19/24 08:03 0.625 MG Atorvastatin Calcium 40 mg HS PO 12/18/24 22:00 12/18/24 21:47 40 MG Aspirin 81 mg DAILY PO 12/19/24 10:00 12/19/24 09:20 81 MG Tramadol HCl 50 mg Q6HP PRN PO 12/18/24 14:45 12/18/24 23:12 50 MG objective General: the patient is well developed and nourished. No acute distress. HEENT: Normocephalic, neck is supple, no carotid bruits. No mass. MENTAL STATUS: Subjective SPEECH, LANGUAGE, HIGHER CORTICAL FUNCTION: no aphasia or dysathria. CRANIAL NERVES: Pupils are equal, round and reactive. EOMs full and conjugate. No nystagmus. Facial sensation intact in all three divisions bilaterally. Mandibular strength intact. Facial muscles symmetrical and strength intact. SENSATION: Sensation to touch and pinprick is normal. MOTOR: Normal tone in the upper and lower extremity. Normal muscle bulk. No fasciculations. No abnormal movements or posturing. Muscle strength of the major groups in the extremities is 5/5. REFLEXES: Deep tendon reflexes symmetrical. No pathological reflexes. CEREBELLAR/COORDINATION: Finger to nose and heel to osuna are normal bilaterally. GAIT/STATION: deferred. laboratory and microbiology Laboratory Tests 12/18/24 04:41 Test 12/18/24 04:41 Range/Units Serum Glucose 84 74-106 mg/dL Problem List Head pressure, dizziness/vertigo, left forearm paresthesia, right thigh weakness, not typical to acute stroke syndrome, Chronic stroke per CT brain scan Brain aneurysm status post craniectomy Auditory hallucination in the night, likely a benign phenomena Assessment/Plan Monitoring Supportive treatment Aspirin 81 mg daily Lipitor 40 mg daily Tele psych consultation Follow up with doctors on discharge Okay to discharge if cleared by the Psychiatry from a neurologic point of view This medical document was created using an electronic medical record system with [employer] dictation system. Although this document has been carefully reviewed, there may still be some phonetic and typographical errors. These areas are purely typographical due to imperfections of the software programs, and do not reflect any compromise in the patient's medical care. Prognosis poor Plan discussed with: Patient, Other Critical Care Time(min): 35 HUMAIRA SCHMITT MD Dec 19, 2024 19:27
[2024-12-20] VITALS (13 sets, daily range): BP systolic 111–122; BP diastolic 53–77; PULSE 55–69; RESP 16–18; TEMP 97.7–97.9; O2SAT 96–100
--- NOTE | 2024-12-20 09:23 | DVHINCON2 ---
Date of Service if different f: Dec 20, 2024 Consultation ([facility]) Progress: Better Labs Laboratory Tests Test 12/17/24 11:49 12/17/24 12:03 12/17/24 15:40 12/17/24 21:57 Bedside Glucose 80 mg/dl (70-106) Large Platelets Few Macrocytosis Slight Phosphorus Level 3.5 mg/dL (2.4-5.1) Magnesium Level 2.0 mg/dL (1.6-2.6) Troponin I High Sensitivity < 3 ng/L (</=34) Triglycerides Level 85 mg/dL (< 150) Cholesterol Level 166 mg/dL (< 200) LDL Cholesterol 84 mg/dL (< 100) HDL Cholesterol 63 mg/dL (40-59) Thyroid Stimulating Hormone (TSH) 1.39 uIU/mL (0.55-4.78) Hemoglobin A1c 5.3 % A1C (<5.7) Vitamin B12 Level 701 pg/mL (211-911) Vitamin D 25-Hydroxy 55.4 ng/mL (30.0-100) Test 12/18/24 00:00 12/18/24 04:41 Urine Color Yellow (Yellow) Urine Clarity Clear (Clear) Urine pH 5.5 (5.0-9.0) Urine Specific [place] 1.023 (1.001-1.035) Urine Protein Negative (Negative) Urine Ketones Negative (Negative) Urine Blood Negative /uL (Negative) Urine Nitrite Negative (Negative) Urine Bilirubin Negative (Negative) Urine Urobilinogen Normal mg/dL (Negative) Urine Leukocyte Esterase Negative /uL (Negative) Urine RBC 1 /hpf (0 - 4) Urine Microscopic WBC 1 /HPF (0-5) Urine Squamous Epithelial Cells Few /hpf (<5) Urine Bacteria Few /hpf (None Seen) Urine Mucus Few (None Seen) Urine Glucose Normal mg/dL (Normal) Urine Opiates Screen Neg (NEGATIVE) Urine Fentanyl Screen Neg (NEGATIVE) Urine Barbiturates Screen Neg (NEGATIVE) Urine Phencyclidine Screen Neg (NEGATIVE) Urine Amphetamines Screen Neg (NEGATIVE) Urine Benzodiazepines Screen Neg (NEGATIVE) Urine Cocaine Screen Neg (NEGATIVE) Urine Cannabinoids Screen Pos (NEGATIVE) White Blood Count 3.4 10^3/uL (4.4-10.8) Red Blood Count 3.85 10^6/uL (4.0-5.20) Hemoglobin 13.4 g/dL (12.2-16.2) Hematocrit 38.4 % (36.0-46.0) Mean Corpuscular Volume 99.7 fL (80.0-100.0) Mean Corpuscular Hemoglobin 34.7 pg (28.0-32.0) Mean Corpuscular Hemoglobin Concent 34.8 g/dL (32.0-36.0) Red Cell Distribution Width 13.2 % (11.8-14.3) Platelet Count 130 10^3/uL (140-450) Mean Platelet Volume 9.7 fL (6.9-10.8) Neutrophils (%) (Auto) % (37.0-80.0) Lymphocytes (%) (Auto) % (10.0-50.0) Monocytes (%) (Auto) % (0.0-12.0) Basophils (%) (Auto) % (0.0-2.0) Neutrophils # (Auto) 10 ^3/uL (1.6-8.6) Lymphocytes # (Auto) 10 ^3/uL (0.4-5.4) Monocytes # (Auto) 10 ^3/uL (0-1.3) Differential Total Cells Counted 100.0 (100) Neutrophils % (Manual) 36 (37.0-80.0) Band Neutrophils % (Manual) 0 Lymphocytes % (Manual) 49 (10.0-50.0) Monocytes % (Manual) 14 (0-12) Eosinophils % (Manual) 1 (0-7) Basophils % (Manual) 0 (0.0-2.0) Metamyelocytes % (manual) 0 Myelocytes % (Manual) 0 Promyelocytes % (Manual) 0 Blast Cells % (Manual) 0 Reactive Lymphocytes 0 Platelet Estimate Decreased Sodium Level 142 mmol/L (136-145) Potassium Level 3.6 mmol/L (3.5-5.1) Chloride Level 109 mmol/L (98-107) Carbon Dioxide Level 23 mmol/L (20-31) Anion Gap 10 (5-15) Blood Urea Nitrogen 14 mg/dL (9-23) Creatinine 0.54 mg/dL (0.550-1.02) Glomerular Filtration Rate Calc 98 mL/min (>90) BUN/Creatinine Ratio 25.9 (10.0-20.0) Serum Glucose 84 mg/dL (74-106) Calcium Level 9.2 mg/dL (8.7-10.4) Total Bilirubin 0.9 mg/dL (0.2-1.0) Aspartate Amino Transf (AST/SGOT) 30 U/L (13-40) Alanine Aminotransferase (ALT/SGPT) 23 U/L (7-40) Alkaline Phosphatase 71 U/L (46-116) Total Protein 6.9 g/dL (5.7-8.2) Albumin 3.9 g/dL (3.2-4.8) Appetite: Good Side effects of medications: No Appearance: Stated age Psychomotor activity: WNL Behavioral: Cooperative Eye contact: Appropriate Speech: WNL Affect: Appropriate Mood: Euthymic Thought processes: Linear/Goal-directed Thought content: WNL Suicidal ideations: Absent Homicidal ideations: Absent Orientation: Person, Place, Time, Situation Memory intact: Recent Intellect: Average Abstractability: WNL Concentration: Adequate Attention: Adequate Judgement: WNL Insight: Good Vitals Vital Signs Date Time Temp Pulse Resp B/P (MAP) Pulse Ox O2 Delivery O2 Flow Rate FiO2 12/20/24 06:24 68 16 100 12/20/24 06:19 Room Air* 0 21 12/20/24 05:00 97.9 120/63 (82) 97.9 Current medications Current Medications Medications Dose Ordered Sig/Joyce Route Start Time Stop Time Status Last Admin Dose Admin Ondansetron HCl 4 mg Q4HP PRN IV 12/17/24 21:30 Morphine Sulfate 2 mg Q4HPRN PRN IV 12/17/24 21:30 Enoxaparin Sodium 40 mg DAILY SC 12/18/24 10:00 12/19/24 09:19 40 MG Nitroglycerin 0.4 mg Q5MINP PRN SL 12/17/24 21:30 Morphine Sulfate 2 mg Q30M PRN IV 12/17/24 21:30 Acetaminophen 500 mg Q4HPRN PO 12/18/24 02:00 12/20/24 05:11 500 MG Amlodipine Besylate 5 mg DAILY PO 12/18/24 10:00 12/19/24 09:20 5 MG Pantoprazole Sodium 40 mg DAILY PO 12/18/24 10:00 12/19/24 09:20 40 MG Levothyroxine Sodium 50 mcg QAM@0600 PO 12/18/24 06:00 12/20/24 05:11 50 MCG Ipratropium [place] 0.5 mg Q6HWA NEB 12/18/24 06:00 12/20/24 06:18 0.5 MG Levalbuterol HCl 0.625 mg Q6HR NEB 12/18/24 00:00 12/20/24 06:19 0.625 MG Atorvastatin Calcium 40 mg HS PO 12/18/24 22:00 12/19/24 21:58 40 MG Aspirin 81 mg DAILY PO 12/19/24 10:00 12/19/24 09:20 81 MG Tramadol HCl 50 mg Q6HP PRN PO 12/18/24 14:45 12/18/24 23:12 50 MG Medication adjusted: No Labs ordered: No Psychotherapy provided: No Diagnosis: Hypnagogic Hallucination. Plan : There is no need for a psychiatric intervention for a single instance of hypnagogic hallucination. There is low chance or recurrence. The pt having been in a bed that was not her own, in an unfamiliar environment and being over-tired likely contributed to this event. This does not suggest an active psychiatric pathology or require psychiatric follow-up per se. If, per chance the pt develops a parasomnia, a referral to neurology may beneficial. A good sleep routine is helpful in minimizing recurrences. History of Present Illness Reason for Consult : New onset hallucination single episode when pt was about to discharge. Discharge was cancelled. HPI : Pt admitted d/t headache and numbness in upper limb and lower extremity. Pt was admitted b/c of hx of past CVA, craniotomy for brain aneurysm, pacemaker, dyslipidemia. Pt is on aspirin among a slew of other meds documented n multiple notes by medical docs. The pt was about to discharge and she said that she had 1 instance of hallucination of someone talking to her the night before so discharge was cancelled and a psychiatry consult was called. Currently, the pt reports not having any hallucinations, SI or HI and says that this episode happened around the time she was falling asleep. She does not remember the content of this hallucinatory event. Pt says that she had only 1 instance of such an occurrence in her life the night before and it scared her as she thought this could be related to something wrong with her brain. Pt recalls that the subsequent dream during sleep was unpleasant as well. She denies any mood issues like depression, has no past psychiatric diagnosis or symptoms of bipolar disorder. Pt denies an symptoms of anxiety disorder or primary psychotic illness. Past Psychiatric History : Denies. Past Medical History : Reviewed as contained in multiple other provider notes. Social History : Lives with sister. utox +ve for cannabis on 12/18/24 and ex smoker. Pt says she hasn't used cannabis in a long time and that she used to use it regularly for years. Assessment/Diagnosis/Plan Reviewed: Consults, Care Plan, Labs, Medications CHADWICK RUSSO MD Dec 20, 2024 09:23
--- NOTE | 2024-12-20 15:32 | DVHDS2 ---
Discharge Summary Date of Admission Dec 17, 2024 at 21:20 Date of Discharge: Dec 19, 2024 Labs/Diagnostic Data: Laboratory Results Test 12/18/24 04:41 12/18/24 00:00 12/17/24 21:57 12/17/24 15:40 White Blood Count 3.4 10^3/uL (4.4-10.8) Red Blood Count 3.85 10^6/uL (4.0-5.20) Hemoglobin 13.4 g/dL (12.2-16.2) Hematocrit 38.4 % (36.0-46.0) Mean Corpuscular Volume 99.7 fL (80.0-100.0) Mean Corpuscular Hemoglobin 34.7 pg (28.0-32.0) Mean Corpuscular Hemoglobin Concent 34.8 g/dL (32.0-36.0) Red Cell Distribution Width 13.2 % (11.8-14.3) Platelet Count 130 10^3/uL (140-450) Mean Platelet Volume 9.7 fL (6.9-10.8) Neutrophils (%) (Auto) % (37.0-80.0) Lymphocytes (%) (Auto) % (10.0-50.0) Monocytes (%) (Auto) % (0.0-12.0) Basophils (%) (Auto) % (0.0-2.0) Neutrophils # (Auto) 10 ^3/uL (1.6-8.6) Lymphocytes # (Auto) 10 ^3/uL (0.4-5.4) Monocytes # (Auto) 10 ^3/uL (0-1.3) Differential Total Cells Counted 100.0 (100) Neutrophils % (Manual) 36 (37.0-80.0) Band Neutrophils % (Manual) 0 Lymphocytes % (Manual) 49 (10.0-50.0) Monocytes % (Manual) 14 (0-12) Eosinophils % (Manual) 1 (0-7) Basophils % (Manual) 0 (0.0-2.0) Metamyelocytes % (manual) 0 Myelocytes % (Manual) 0 Promyelocytes % (Manual) 0 Blast Cells % (Manual) 0 Reactive Lymphocytes 0 Platelet Estimate Decreased Sodium Level 142 mmol/L (136-145) Potassium Level 3.6 mmol/L (3.5-5.1) Chloride Level 109 mmol/L (98-107) Carbon Dioxide Level 23 mmol/L (20-31) Anion Gap 10 (5-15) Blood Urea Nitrogen 14 mg/dL (9-23) Creatinine 0.54 mg/dL (0.550-1.02) Glomerular Filtration Rate Calc 98 mL/min (>90) BUN/Creatinine Ratio 25.9 (10.0-20.0) Serum Glucose 84 mg/dL (74-106) Calcium Level 9.2 mg/dL (8.7-10.4) Total Bilirubin 0.9 mg/dL (0.2-1.0) Aspartate Amino Transferase (AST) 30 U/L (13-40) Alanine Aminotransferase (ALT) 23 U/L (7-40) Alkaline Phosphatase 71 U/L (46-116) Total Protein 6.9 g/dL (5.7-8.2) Albumin 3.9 g/dL (3.2-4.8) Urine Color Yellow (Yellow) Urine Clarity Clear (Clear) Urine pH 5.5 (5.0-9.0) Urine Specific [place] 1.023 (1.001-1.035) Urine Protein Negative (Negative) Urine Ketones Negative (Negative) Urine Blood Negative /uL (Negative) Urine Nitrite Negative (Negative) Urine Bilirubin Negative (Negative) Urine Urobilinogen Normal mg/dL (Negative) Urine Leukocyte Esterase Negative /uL (Negative) Urine RBC 1 /hpf (0 - 4) Urine Microscopic WBC 1 /HPF (0-5) Urine Squamous Epithelial Cells Few /hpf (<5) Urine Bacteria Few /hpf (None Seen) Urine Mucus Few (None Seen) Urine Glucose Normal mg/dL (Normal) Urine Opiates Screen Neg (NEGATIVE) Urine Fentanyl Screen Neg (NEGATIVE) Urine Barbiturates Screen Neg (NEGATIVE) Urine Phencyclidine Screen Neg (NEGATIVE) Urine Amphetamines Screen Neg (NEGATIVE) Urine Benzodiazepines Screen Neg (NEGATIVE) Urine Cocaine Screen Neg (NEGATIVE) Urine Cannabinoids Screen Pos (NEGATIVE) Hemoglobin A1c 5.3 % A1C (<5.7) Vitamin B12 Level 701 pg/mL (211-911) Vitamin D 25-Hydroxy 55.4 ng/mL (30.0-100) Phosphorus Level 3.5 mg/dL (2.4-5.1) Magnesium Level 2.0 mg/dL (1.6-2.6) Troponin I High Sensitivity < 3 ng/L (</=34) Triglycerides Level 85 mg/dL (< 150) Cholesterol Level 166 mg/dL (< 200) LDL Cholesterol 84 mg/dL (< 100) HDL Cholesterol 63 mg/dL (40-59) Thyroid Stimulating Hormone (TSH) 1.39 uIU/mL (0.55-4.78) Test 12/17/24 12:03 12/17/24 11:49 Large Platelets Few Macrocytosis Slight POC Glucose 80 mg/dl (70-106) Other Laboratory Tests 12/18/24 04:41 Brief Hx & Hospital Course: HPI:Waleska Garcia is a 74-year-old female w Past medical history: Hypertension, dyslipidemia, 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 while waiting in the ED patient presented right leg heaviness. Patient also reports auditory hallucinations for the past two days. Denies fever, chills, palpitation, syncope, chest pain, dyspnea, nausea, vomiting, diarrhea sick contacts, recent travel and other motor or sensory deficits. Summary: Patient presented with acute worsening frontal and occipital headache associated with heaviness and photophobia. Patient also has had recent right leg heaviness and auditory hallucinations. Patient admitted for CVA rule out. On labs patient has mild leukopenia 3.7, macrocytosis MCV 101.4, mild thrombocytopenia 130, CMP largely unremarkable, UA showing intravascular volume depletion SG 1.023, otherwise unremarkable. UDS positive for cannabis. Head CT with no acute intracranial abnormalities. Patient has pacemaker which is not compatible with the MRI, repeat head CT is unchanged with no concerns or any acute abnormalities. Carotid Doppler also unremarkable. Chest x-ray unremarkable. Neurology is consulted and believes the symptoms are atypical of CVA. This is unlikely to be CVA but can not do complete rule out due to incompatibility with MRI. Given symptoms patient was likely suffering from migraine or tension headaches. Patient was tried on prn Tylenol and 2nd line Compazine which relieves headaches. She was given IV fluids for volume resuscitation. Echocardiogram done as routine workup off stroke showing small intra-atrial shunt which could be a small PFO. Psychiatry by tele consulted for hallucinations and believes this might be hypnagogic hallucinations. Patient has concerns are met, workup completed, vital signs stable, patient ambulating tolerating p.o. having regular bowel function and stable to discharge as per plan below. Diagnosis: dizziness/vertigo, Likely tension headache, resolving intra cerebral hemorrhage ruled out Concern for CVA/stroke, unable to rule out Hypnagogic Hallucination. History of pacemaker, incompatible with MRI Intravascular volume depletion Thrombocytopenia, mild, chronic intraatrial shunt, PFO possible left forearm paresthesia, resolving right thigh weakness, resolving Chronic stroke per CT brain scan history of Brain aneurysm status post craniectomy COPD Hypothyroidism Hypertension Hyperlipidemia Discharge plan: - hydrate well -Resume cardiac diet -For headaches use Tylenol OTC 1st line, Compazine 5 mg as needed up to 3 times a day -Continue aspirin and Lipitor -Follow up with Cardiology -Follow up with PCP to review discharge Condition at Discharge: Fair Final Diagnosis/Problems List dizziness/vertigo, Likely tension headache, resolving intra cerebral hemorrhage ruled out Concern for CVA/stroke, unable to rule out Hypnagogic Hallucination. History of pacemaker, incompatible with MRI Intravascular volume depletion Thrombocytopenia, mild, chronic intraatrial shunt, PFO possible left forearm paresthesia, resolving right thigh weakness, resolving Chronic stroke per CT brain scan history of Brain aneurysm status post craniectomy COPD Hypothyroidism Hypertension Hyperlipidemia Discharge Disposition: Home Discharge Instruct/Medications Diet: Cardiac 2g Na,low cholest Activity: No Restrictions, As Tolerated Follow Up/Referral: pcp, cardiology Medications: no changes, as below. Discharge Statement: "Patient was advised to return to the ER or call 911 if any headaches, dizziness, shortness of breath, chest pain, abdominal pain, bleeding, fevers, or worsening of medical condition. Patient was counseled about treatment plan, medications, possible side effects, patientverbalized understanding. All questions were answered to the best of my ability. This discharge took greater then 30 minutes in planning, reviewing documentation, counseling the patient, and discussing with other team members." Date of Service: Dec 20, 2024 Billing Provider: JOSEFINA AARON MD Common Visit Codes: 96482-QMQ/OBS DISCH DAY >30min JOSEFINA AARON MD Dec 20, 2024 15:32
--- NOTE | 2024-12-22 10:46 | ECG ---
[facility] Test Date: 2024-12-20 Test Time: 11:53:22 Pat Name: TAJ MG Department: Room: 0290T A Gender: F [employer]: GIAN : 1950 Requested By: JOSEFINA SAUNDERS Order Number: [id number] Reading MD: Raphael Xiong Measurements Intervals [place] Rate: 60 P: 0 NH: 115 QRS: 63 QRSD: 90 T: 57 QT: 437 QTc: 437 Interpretive Statements Atrial-paced rhythm Baseline wander in lead(s) V1,V6 Electronically Signed On 12-24-2024 15:51:42 PDT by Raphael Xiong Please click the below link to view image of tracing.
== END 2024-12-20 17:35 | disposition home or self-care (01) | DRG 103 ==
LOC: ER 11:34 → OVERFLOW 21:20 → TELE-WESTW 23:11
PROVIDERS: ADMIT Student in an Organized Health Care Education/Training Program; ATTEND Student in an Organized Health Care Education/Training Program
DX: G44.209 Tension-type headache, unspecified, not intractable (principal); Q21.12 Patent foramen ovale; R44.0 Auditory hallucinations; G43.909 Migraine, unspecified, not intractable, without status migrainosus; I20.89 Other forms of angina pectoris; I10 Essential (primary) hypertension; D69.6 Thrombocytopenia, unspecified; E78.5 Hyperlipidemia, unspecified; E03.9 Hypothyroidism, unspecified; J44.9 Chronic obstructive pulmonary disease, unspecified; E86.9 Volume depletion, unspecified; M10.9 Gout, unspecified; F17.200 Nicotine dependence, unspecified, uncomplicated; Z79.2 Long term (current) use of antibiotics; Z79.82 Long term (current) use of aspirin; Z95.0 Presence of cardiac pacemaker; Z86.73 Personal history of transient ischemic attack (TIA), and cerebral infarction without residual deficits; Z80.3 Family history of malignant neoplasm of breast; Z83.3 Family history of diabetes mellitus; Z79.899 Other long term (current) drug therapy; Z82.49 Family history of ischemic heart disease and other diseases of the circulatory system; Z82.3 Family history of stroke; Z80.41 Family history of malignant neoplasm of ovary
CPT/HCPCS: 36415; 70450; 71045; 80048; 80053; 80061; 80307; 81001; 82306; 82607; 82962; 83036; 83735; 84100; 84443; 84484; 85007; 85027; 93005; 93306; 93886; 94640; 97110; 97116; 97163; 97530; 99291; G0378